=== PATIENT | female | born 2000 | race Caucasian/White ===

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

== ENCOUNTER 2021-06-19 22:22 | Emergency (ER) | payer OTHER, SELFPAY ==
[2021-06-19 22:23] VITALS: BP 159/87; PULSE 110; RESP 16; TEMP 37.2; O2SAT 98; BMI 29.2
[2021-06-19 23:00] LABS: Absolute Lymphocyte Count 3.61 X10^3/uL (0.83-4.51); Basophil# 0.05 X10^3/uL; Basophil% 0.6 % (0-1); Eosinophil# 0.11 X10^3/uL; Eosinophils% 1.3 % (0-5); Hematocrit 37.3 % (37-47); Hemoglobin 12.5 g/dL (12.0-15.0); Lymphocyte # 3.61 X10^3/ul (0.83-4.51); Lymphocyte % 43.2 % (19-41); Mean Corp Hgb Conc 33.5 g/dL (32-36); Mean Corpuscular Hgb 29.5 pg (27.0-32.0); Mean Platelet Vol. 9.2 fl (6.2-12.0); Monocyte# 0.62 X10^3/uL; Monocyte% 7.4 % (0-10); NRBC Flagged by Analyzer 0 % (0-5); Neutrophil # 3.95 X10^3/uL (2.7-7.7); Neutrophil % 47.4 % (47-70); Platelet Count 381 K/mm3 (150-450); RBC Distribution Width CV 12.7 % (11.6-14.6); RBC Distribution Width SD 40.9 fl (35.1-43.9); Red Blood Count 4.24 M/mm3 (4.2-5.4); White Blood Count 8.4 K/mm3 (4.4-11.0)
[2021-06-19 23:10] LABS: Internal QC Validated? YES +Cl - CLEAR BKGD; Pregnancy, Serum, hCG Quali. NEGATIVE Negative
--- NOTE | 2021-06-19 23:11 | EX.ED.DYSGE1 ---
HPI History of Present Illness Chief Complaint: Suicidal Detail of Chief Complaint: Depression and suicidal ideation Informant: patient Narrative Narrative: Patient the emergency department complaint of depression and suicidal ideation. Patient states that she has felt this way for the last several hours but it has been building up for a while. Patient is having thoughts of taking an overdose of all her pills. Patient has never overdosed before. Patient also has history of anxiety and PTSD. Patient will only communicate by typing on her cell phone via text currently. Patient states that she is nonverbal because of her PTSD at this time. Patient does admit at times feeling like she sees things out of the corners of her eyes and feels like there are people behind her that she knows they are not really there. Patient states that she is having issues with school and issues with technology that is driving this depression and suicidal ideation. Patient denies recent illness. Patient has had the Covid vaccine. Patient has never been hospitalized before. Patient does not have a psychiatrist. Prior similar symptoms: Yes [facility] Medical History (Updated 06/20/21 @ 00:[address] Vale Ware, ) Anxiety Depression PTSD (post-traumatic stress disorder) Allergy/AdvReac Type Severity Reaction Status Date / Time No Known Allergies Allergy Verified 06/19/21 22:23 [facility] ED Constitutional Constitutional ED: Reports systems reviewed and no addt'l complaints, except as documented; Denies body ache(s), change in weight or chills Eyes Eyes: Denies acute decrease in peripheral vision, change in vision, double vision or loss of vision ENT ENT ED: Reports none; Denies ear pain, lip swelling, loss taste/smell, neck pain, otalgia or sore throat Cardiovascular Cardiovascular: Reports none; Denies abdominal pain, chest pain with activity, leg edema, lightheadedness, palpitations, rapid heart rate or syncope Respiratory/Chest Respiratory/Chest: Reports none; Denies change in mental status, dry cough, dyspnea, hemoptysis, shortness of breath at rest or shortness of breath with exertion Gastrointestinal Gastrointestinal: Reports none; Denies abdominal pain, change in stool character, diarrhea, hematemesis, hematochezia, melena, rectal bleeding or vomiting Genitourinary Genitourinary ED: Reports none; Denies abdominal discomfort, anuria, dysuria, genital pain or polyuria Musculoskeletal Musculoskeletal: Reports none; Denies arthralgias, back pain, difficulty walking, extremity pain, muscle weakness or myalgias Integumentary Reports none; Denies abscess or rash Neurologic Neurologic: Reports none; Denies abnormal gait, confusion, focal weakness, frequent falls, headache(s), loss of vision, numbness, paresthesias, radicular pain, vertigo or weakness Psychiatric Psychiatric: Reports systems reviewed and no addt'l complaints, except as documented, none, depression and suicidal ideation; Denies behavioral changes, confusion, difficulty concentrating, hallucinations, tactile hallucinations or visual hallucinations Endocrine Endocrinology: Denies none, cold intolerance, excessive sweating, fatigue or heat intolerance Hematologic/Lymphatic Hematologic/Lymphatic: Reports none; Denies anemia, easy bleeding or easy bruising Allergic/Immunologic Allergic/Immunologic ED: Denies as per HPI, none, lip swelling, mouth swelling, throat swelling, tongue swelling or hives EXAM Physical Exam Const Vital Signs: 06/19/21 22:23 06/20/21 00:16 Temperature 99.0 F Temperature Source Oral Pulse Rate 110 H Respiratory Rate 16 16 Blood Pressure 159/87 H Blood Pressure Mean 111 Pulse Ox 98 Oxygen Delivery Method Room Air Positive well nourished and well developed General Appearance ED: well developed and NAD HEENT Reports TM's clear and moist mucous membranes normocephalic and atraumatic; Negative for trauma or tenderness Tympanic Membrane ED: Yes TM's clear Eyes PERRL and EOMs intact bilaterally General Eye ED: Negative for pale conjunctiva or scleral icterus Neck no lymphadenopathy, supple and no JVD General: Negative for tenderness Chest Wall inspection of chest normal and palpation of chest normal Chest: Negative for tenderness Resp normal respiratory effort and clear to auscultation bilaterally Effort and Inspection: Negative for respiratory distress or pain with movement Auscultation: Negative for rhonchi, wheezes or diminished lung sounds Cardio regular rate, regular rhythm, S1 normal heart sound, S2 normal heart sound and no murmurs Peripheral Pulses: pulses 2+ throughout GI normal to inspection, nondistended, normoactive bowel sounds, soft to palpation, non-tender, non-distended and no masses Back/Spine no CVA tenderness and no thoracic nor lumbar tenderness Extremity normal to inspection General Extremety ED: Negative for edema General Extremity: Negative for edema Neuro oriented x3, CN's II-XII intact bilaterally, no sensory deficits noted and gait normal Sensorium / Orientation: awake, alert, oriented to person, oriented to place and oriented to time Motor Exam: strength 5/5 throughout and strength abnormal Psych mental status grossly normal Skin no rashes or lesions noted and no wounds MDM MDM MDM Narrative Medical decision making narrative: Care of patient will be turned over to evening physician awaiting evaluation by crisis. Patient at this time feels unsafe and having thoughts of self-harm. She wishes to overdose on her pills. Patient currently takes Prozac. Lab Data Attestation: I reviewed the patient's lab results. Labs: Laboratory Results - last 24 hr 06/19/21 06/19/21 06/19/21 22:41 22:41 22:41 WBC 8.4 RBC 4.24 Hgb 12.5 Hct 37.3 MCV 88.0 MCH 29.5 MCHC 33.5 RDW Std Deviation 40.9 RDW Coeff of Jatinder 12.7 Plt Count 381 MPV 9.2 Immature Gran % (Auto) 0.100 Neut % (Auto) 47.4 Lymph % (Auto) 43.2 H Gage % (Auto) 7.4 Eos % (Auto) 1.3 Baso % (Auto) 0.6 Absolute Neuts (auto) 4.0 Absolute Lymphs (auto) 3.61 Nucleated RBC % 0 Sodium 137 Potassium 3.7 Chloride 107 Carbon Dioxide 25.0 Anion Gap 5 BUN 9 Creatinine 0.52 L Estim Creat Clear Calc 160.21 Est GFR (MDRD) Af Amer 190 Est GFR (MDRD) Non-Af 157 BUN/Creatinine Ratio 17.2 Glucose 102 Calcium 9.2 Serum , Qual Urine Opiates Screen Urine Methadone Screen Ur Barbiturates Screen Ur Phencyclidine Scrn Ur Amphetamines Screen U Methamphetamin-MDMA U Benzodiazepines Scrn Urine Cocaine Screen U Cannabinoids Screen Ur Drug Screen Comment Ethyl Alcohol < 3.0 06/19/21 06/19/21 22:41 23:44 WBC RBC Hgb Hct MCV MCH MCHC RDW Std Deviation RDW Coeff of Jatinder Plt Count MPV Immature Gran % (Auto) Neut % (Auto) Lymph % (Auto) Gage % (Auto) Eos % (Auto) Baso % (Auto) Absolute Neuts (auto) Absolute Lymphs (auto) Nucleated RBC % Sodium Potassium Chloride Carbon Dioxide Anion Gap BUN Creatinine Estim Creat Clear Calc Est GFR (MDRD) Af Amer Est GFR (MDRD) Non-Af BUN/Creatinine Ratio Glucose Calcium Serum , Qual NEGATIVE Urine Opiates Screen NEGATIVE Urine Methadone Screen NEGATIVE Ur Barbiturates Screen NEGATIVE Ur Phencyclidine Scrn NEGATIVE Ur Amphetamines Screen NEGATIVE U Methamphetamin-MDMA NEGATIVE U Benzodiazepines Scrn NEGATIVE Urine Cocaine Screen NEGATIVE U Cannabinoids Screen NEGATIVE Ur Drug Screen Comment Ethyl Alcohol Discharge Plan Triage Chief Complaint: Suicidal ED Provider: Vale Ware Dx/Rx/DC Orders Clinical Impression: Depression, Suicidal ideation Primary Care Provider: Care Physician,No Primary Referrals: Care Physician,No Primary [Primary Care Provider] -
[2021-06-19 23:15] LABS: Anion Gap 5 (5-15); BUN 9 mg/dL (7-18); BUN/Creat Ratio 17.2 RATIO (10-20); Calcium,Total 9.2 mg/dL (8.5-10.1); Chloride 107 mmol/L (98-107); Creatinine, Serum 0.52 mg/dL (0.55-1.02); EST Glomerular Filtration Rate 157 mL/min (>60); Est Glom Filt Rate - Afr Amer 190 mL/min (>60); Estimated Creatinine Clearance 160.21 ml/min; Glucose 102 mg/dL (74-106); Potassium 3.7 mmol/L (3.5-5.1); Sodium Level 137 mmol/L (136-145)
[2021-06-19 23:19] LABS: Alcohol, Blood (Medical)-Serum < 3.0 mg/dL
[2021-06-20 00:07] LABS: Amphetamine Urine VISTA NEGATIVE (<1000 ng/mL); Barbiturate Urine VISTA NEGATIVE (< 200 ng/mL); Benzodiazepine Urine VISTA NEGATIVE (< 200 ng/mL); Cocaine Urine VISTA NEGATIVE (< 300 ng/mL); Ecstacy Urine VISTA NEGATIVE (< 500 ng/mL); Methadone Urine VISTA NEGATIVE (< 300 ng/mL); PCP Urine VISTA NEGATIVE (< 25 ng/mL); THC Urine VISTA NEGATIVE (< 50 ng/mL); Vista UDS pH Range 6
--- NOTE | 2021-06-20 00:12 | NURSING ---
CALLED CRISIS AT 0012
[2021-06-20 00:16] VITALS: RESP 16
[2021-06-20 01:00] VITALS: RESP 16
[2021-06-20 02:00] VITALS: RESP 14
[2021-06-20 03:00] VITALS: BP 134/69; PULSE 73; RESP 14; O2SAT 97
--- NOTE | 2021-06-20 03:54 | ED.RN ---
THIS RN SPOKE WITH JESSE LOPEZ AT THE [facility]. IT WAS RELAYED THAT SHE WOULD BE DISCHARGED BACK TO CAMPUS WITH A SAFETY PLAN AND APPTS FOR IOP PROGRAM. JESSE VERBALIZES UNDERSTANDING
[2021-06-20 05:09] VITALS: PULSE 76; RESP 16; O2SAT 98
--- NOTE | 2021-06-21 16:01 | CM.ED ---
SURYA Note Referral Source: Michelle at [facility] Referral Reason: Patient transport and scheduled appointment SURYA received call from [facility], Michelle. Michelle said that patient was scheduled to have appointment at 2pm today [facility]. Michelle said that [facility] went to the [facility] but has no ride home as she was dropped off. SURYA called Diamante at [facility]. She indicated that patient needs to be rescheduled for intake. SURYA rescheduled intake for 1:00pm on Friday06/22/21. 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 SURYA called Michelle at [facility] and advised that patient's appointment has been rescheduled for 06/22 at 1:00pm and that hospital van will pick patient up at [facility] and take her back to [facility]. Michelle agreed to provide this information to patient. SURYA advised Michelle that if patient needs ride tomorrow to speak to transport. No further SW needs at this time. Plan: Reschedule patient's intake at [facility] for 06/22 at 1PM Antoinette SPENCE
== END 2021-06-20 05:09 | disposition home or self-care (01) ==
PROVIDERS: Emergency Provider Emergency Medicine
DX: F32.9 Major depressive disorder, single episode, unspecified (principal); R45.851 Suicidal ideations; Z79.899 Other long term (current) drug therapy
CPT/HCPCS: 36415; 80048; 80307; 82077; 84703; 85025; 87426; 99283

== ENCOUNTER 2021-07-17 09:00 | Outpatient (RCR) | payer OTHER, SELFPAY ==
--- NOTE | 2021-07-17 09:05 | BH.SGPN.GN ---
Behaviors/Verbalizations/Mental Status: [] Eye contact is good. Motor activity is appropriate. Appearance is neat. Speech is Appropriate. Mood is anxious. Affect is congruent. Thoughts are linear and logical. No evidence of psychosis. Reviewed daily check in sheet and no reports of suicidal ideations or intent. Client Response/Progress/Benefit: [] Pt participated when prompted. Attentive. This was patient's first group in IOP and she introduced herself to the group. States that she has depression, anxiety and possibly PTSD. Over the past month she has been isolating and more depression. She is hoping to learn better skills to control my emotions. Group was supportive and offered advice and feedback for her first day and week. No progress noted as this was her first day in IOP. Will continue in IOP to maintain safety, increase healthy coping, and prevent decompensation. Narrative Note: []
--- NOTE | 2021-07-17 10:10 | BH.SGPN.GN ---
Behaviors/Verbalizations/Mental Status: []Client alert and oriented, neatly dressed and groomed. Eye contact good. Motor activity appropriate. Speech within normal limits. Affect congruent, mood euthymic and anxious. Thoughts linear, logical, no signs of hallucinations or delusions. Client Response/Progress/Benefit: []Pt providing feedback during discussion and attentive during psychoeducation. Took notes as peers identified obstacles or barriers that hinder our ability to communicate our emotions effectively, especially in stressful situations. Group identified the following obstacles; not knowing how to express self, distorted thought patterns, difficulty distinguishing emotions, and lashing out. Pt provided insight on how emotion and mood can impact effective communication. Pt engaged during activity and reported that difficulty distinguishing their emotions and distorted thoughts are often a barrier to being able to manage their emotions and communicating in stressful situations. Benefited from increased awareness on how our emotions impact our communication. First day of IOP tx. Will continue IOP tx to prevent decompensation, gain healthy coping skills, and maintain safety. Narrative Note: []
--- NOTE | 2021-07-17 11:14 | BH.SGPN.GN ---
Behaviors/Verbalizations/Mental Status: []Client alert and oriented, casually dressed and groomed. Eye contact good. Motor activity appropriate. Speech within normal limits. Affect congruent, mood dysthymic. Thoughts linear, logical, no signs of hallucinations or delusions. Client Response/Progress/Benefit: []Client first day in IOP tx. Did well to remain engaged in session AEB client listening attentively to peers, taking notes, and providing input throughout. Worked with group to process the activity completed in previous session and identify skills used to better manage emotions experienced throughout. Reflected that focusing on what?s in their control could aid in improving emotion regulation in the moment. Attentive during psychoeducation on 4 zones of regulation. Client able to identify feelings and behaviors for each zone. Client identified that ?green zone? means feeling more neutral, calm, and focused, and strong. Shared when in the ?green zone? client often goes to the studio, reflects with others, and makes spontaneous plans with others. Able to identify specific coping skills to support themself in each zone which included: make art, self-care activities, progressive muscle relaxation, as well as develop and communicate with supports a crisis management plan. Benefited from increased education on zones of regulation or stages of alertness for emotions and healthy coping skills to use for each zone. Will continue IOP tx to improve mood stability and prevent decompensation, increase insight and understanding of mental health sx, as well as improve emotion regulation skills. Narrative Note: []
--- NOTE | 2021-07-17 11:27 | BH.COMM ---
Communication Note - Communication with Client Communication Note: met with pt to complete initial paperwork and pt's pronouns are they/them. No significant changes since pre-admission screening. Completed [place] [facility]icide Screening. Pt presents as low-moderate risk. Pt denies any active suicidal ideations, plan, or intent as of 07/17/21. Pt has history of self-injurious behaviors but denies any in the past 11 months. Pt also reports history of one previous suicide attempt in middle school. Pt admits to having suicidal ideations with thoughts of overdosing on their medications which resulted in an ER visit on 06/19/21. Pt reports their suicidal ideations are passive now and they feel able to maintain safety. Future oriented and protective factors noted. Does not present as imminent risk due to no active SI, plan, or intent.
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
[2021-07-18 10:27] VITALS: BP 140/77; PULSE 85
--- NOTE | 2021-07-18 11:10 | BH.SGPN.GN ---
Behaviors/Verbalizations/Mental Status: []Client alert and oriented, neatly dressed and groomed. Eye contact good. Motor activity appropriate. Speech within normal limits. Affect congruent, mood dysthymic. Thoughts linear, logical, no signs of hallucinations or delusions. Client Response/Progress/Benefit: []Pt was engaged throughout AEB participating in discussion and taking notes. Pt did well during the short activity to their frustration during and did well to use calming skills and communication. Contributed as group brainstormed healthy coping skills for better managing anger which included: deep breathing, counting, exercise, DDD, and looking at the consequences of responding in anger. Pt also gained awareness of internal costs of unmanaged anger. Pt appeared to benefit from identifying different techniques to manage anger as well as gaining awareness of the costs of anger. Pt reported when their anger is unmanaged, pt becomes sarcastic and isolates. Pt selected progressive muscle relaxation to better manage anger. Will continue IOP tx to prevent decompensation, gain healthy coping skills, and improve daily functioning. Narrative Note: []
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
--- NOTE | 2021-07-18 12:06 | BH.DR.ITP ---
Initial Treatment Plan Patient Information Visit Information: ADMISSION DATE: EXPECTED LOS: 4-6 weeks Problems/Symptoms Problem #1:: Anxiety Symptom:: Rumination, worry, hypervigilance, feeling of impending doom, nightmares, reexperiencing Problem #2:: Depression Symptom:: Sadness, biological disruption of appetite, guilt, worthlessness, history of suicidal ideation, low energy, erratic concentration
--- NOTE | 2021-07-19 09:05 | BH.SGPN.GN ---
Behaviors/Verbalizations/Mental Status: [] Eye contact is good. Motor activity is appropriate. Appearance is neat. Speech is Appropriate. Mood is anxious. Affect is congruent. Thoughts are linear and logical. No evidence of psychosis. Reviewed daily check in sheet and no reports of suicidal ideations or intent. Client Response/Progress/Benefit: [] Pt was an active participant in group discussion. Attentive. Daily symptom tracker notes 10/10 for anxiety and irritability. Shared with the group that she may be over-extending herself with work and school. Notes that she has been working daily. Group had discussion on boundary setting with support and work is important for mental health. Pt has insight into the impact. Overall a very brief check in for patient however she was engaged in other group discussions and provided appropriate feedback to peers. Progress noted per pt report. Will continue in IOP to maintain safety, increase healthy coping, and prevent decompensation. Narrative Note: []
--- NOTE | 2021-07-19 10:10 | BH.SGPN.GN ---
Behaviors/Verbalizations/Mental Status: [] Eye contact is good. Motor activity is appropriate. Appearance is neat. Speech is Appropriate. Mood is anxious. Affect is congruent. Thoughts are linear and logical. No evidence of psychosis. Client Response/Progress/Benefit: [] Pt was an active participant in group discussion and activity. Attentive during psychoeducation on anger. Participated in interactive discussion on reasons for anger and some positive benefits which include; standing up for something, sports, competition, causes us to set boundaries, and motivates us into action. Participated in discussion on the emotions that underlay anger or feed anger which pt identified were feeling unsafe and lack of control. Patient also shared how anger manifests which is isolation, sarcasm, and venting. Benefited from increased understanding of anger and how it impacts individuals. Will continue in IOP to maintain safety, increase healthy coping skills, and improve functioning. Narrative Note: []
--- NOTE | 2021-07-19 10:16 | BH.SGPN.GN ---
Behaviors/Verbalizations/Mental Status: []Client alert and oriented, neatly dressed and groomed. Eye contact good. Motor activity appropriate. Speech within normal limits. Affect congruent, mood euthymic. Thoughts linear, logical, no signs of hallucinations or delusions. Client Response/Progress/Benefit: []Pt was an active participant AEB pt participating in activity, taking notes, and contributing to discussion. Pt worked with group to identify benefits of effective problem solving. Listened during psychoeducation about ABCDE problem solving method. Worked with group to identify barriers to effective problem solving which included: irrational thinking, impatience, indecisiveness, not having skills, feeling overwhelmed, and difficult emotions. Pt reported to solve problems ?you need to take a step back.? Pt seemed to benefit from increased awareness of strategies to help solve a problem. Pt will continue IOP tx to prevent decompensation of symptoms, improve daily functioning, and gain healthy coping skills. Narrative Note: []
--- NOTE | 2021-07-19 11:13 | BH.SGPN.GN ---
Behaviors/Verbalizations/Mental Status: []Eye contact is good. Motor activity is appropriate. Appearance is casual. Speech is Appropriate. Mood is euthymic, anxious. Affect is congruent. Thoughts are linear and logical. No evidence of psychosis. Client Response/Progress/Benefit: []Pt responded well to session as evidenced by contributing during challenge activity, listening to peers, and providing input throughout. Processed how strategies used for problem solving in activity can be applied to daily life. Completed problem solving worksheet and identified the problem she wants to work on as ?feeling safer in safe places?. Pt identified skills she can utilize to work on this problem include: increase awareness of current safe and unsafe places she encounters regularly, reflect on what safety feels like, reflect on behaviors she can engage in to increase sense of safety in safe places, identify personal triggers, and practice stabilization skills in identified safe places. Discussed that working to solve this problem will aid in increasing self-confidence and reducing anxiety levels. Pt seemed to benefit from identifying strategies to problem solve through a problem currently impacting mental health. Recommended continued tx to further improve consistent healthy coping and self-care, reduce distorted thinking patterns which cause anxiety, and improve mood stability. Narrative Note: []
--- NOTE | 2021-07-24 09:05 | BH.SGPN.GN ---
Behaviors/Verbalizations/Mental Status: [] Eye contact is good. Motor activity is appropriate. Appearance is casual. Speech is Appropriate. Mood is depressed. Affect is flat. Thoughts are linear and logical. No evidence of psychosis. Reviewed daily check in sheet and no reports of suicidal ideations or intent. Client Response/Progress/Benefit: [] Pt participated at times during the group discussion. Attentive. Emotion is tired. Mental health win was improved sleep over the past 2 days. Reports that she typically sleeps 3 hours however has been sleeping 5 hours. Primarly obstacle is nightmares. She will stay awake till 2-3 am till she is exhausted and passes out. She doesn't like to sleep b/c of the nightmares. Other mental health win is that people at back on campus after fall break. Less isolation which is beneficial. Progress noted per pt report. Benefited from group support, encouragement, and feedback. Will continue in IOP to maintains safety, prevent decompensation, and increase healthy coping skills. Narrative Note: []
--- NOTE | 2021-07-24 10:15 | BH.SGPN.GN ---
Behaviors/Verbalizations/Mental Status: []Client alert and oriented, casually dressed and groomed. Eye contact good. Motor activity appropriate. Speech within normal limits. Affect congruent, mood anxious. Thoughts linear, logical, no signs of hallucinations or delusions. Client Response/Progress/Benefit: []Client was an engaged participant AEB listening attentively to others, taking notes, and staying engaged with group activity. Connected with the topic of pitfalls and helped the group discuss barriers that keep them from choosing a healthier path to mental wellness such as pitfalls. Client stated quick fixes tend to be a temporary relief. Group worked together to identify examples of personal pitfalls which included: negative thoughts, avoidance of things need to do, seek external validation, limited self-reflection, and maintaining toxic relationships. Client benefited from group with increased understanding of impact personal pitfalls can have on mental health. Client will continue IOP to increase healthy coping skills, improve daily functioning and prevent decompensation. Narrative Note: []
--- NOTE | 2021-07-24 11:15 | BH.SGPN.GN ---
Behaviors/Verbalizations/Mental Status: []Client alert and oriented, neatly dressed and groomed. Eye contact good. Motor activity appropriate. Speech within normal limits. Affect congruent, mood euthymic. Thoughts linear, logical, no signs of hallucinations or delusions Client Response/Progress/Benefit: []Client receptive of session, engaged throughout AEB client actively listening and contributing to discussion, as well as taking notes. Client completed worksheet identifying personal pitfalls impacting mental health progress. Client identified the following pitfalls: trying to ?do it alone,? unrealistic expectations of self, and inappropriate guilt. Group learned different coping skills to help manage pitfalls. Client selected trying to ?do it alone? as the pitfall client wants to overcome. Client plans to work on this by recognizing the support client does have and recognizing when they use healthy support. Benefited from identifying personal pitfalls and strategies to overcome these pitfalls. Will continue IOP tx to reduce negative thinking, improve daily functioning, and increase management of PTSD symptoms. Narrative Note: []
--- NOTE | 2021-07-24 13:36 | BH.MDN ---
Multi-Disciplinary Note - Note 30-min Individual Time Started:: 12:10 Date: 07/24/21 Purpose of session/treatment goals addressed:: To process current stressors, review boundary setting strategies, and validate emotions. Symptoms/Behavior:: Pt identifies as non-binary and has they/them pronouns. Eye Contact:: Good Motor Activity:: Appropriate Appearance:: Neat Speech:: Appropriate Mood:: Euthymic, Anxious Affect:: Congruent Thoughts:: Linear, Logical, No evidence of hallucinations/delusions noted Staff Interventions:: rapport building, strengths perspective, goal setting, other - discussed boundary strategies and self-care Client Response:: Pt responded well to session, open to meeting with therapist. Pt reports they are feeling much better this week. Pt shared last week they were overwhelmed by work and not getting much sleep. Pt also submitted the first chapter of their independent study, and although they were late in submitting it, they felt confident about the work. Pt reports today they wanted to address anxiety about being with their mother and grandfather tomorrow. Pt shared their grandfather is not a good person and that pt and their grandfather do not have the same beliefs. Pt stated they have not come out to their grandfather about their sexual orientation and gender identity. Pt reports they do not want to discuss this or their mental health with their family tomorrow. Discussed what boundaries pt wants to enforce and how pt can do this. Pt reports they want to communicate their boundaries ahead of time with their mother and to have a plan in the moment if boundaries get disrespected. Also discussed pt's supports and self-care plan after the lunch with their mother and grandfather. Risks/Concerns:: Pt denies any suicidal ideations, plan, or intent as of 07/24/21. Progress Toward Goals/Plan:: Pt's first week of IOP tx. Pt reports enjoying coming to IOP and is consistent with attendance. Pt states their mood has been better and they are feeling less stressed about school this week. Pt continues to endorse issues with sleep, nightmares, anxiety about school, and negative thinking patterns. Pt will continue IOP tx to promote mood stability, increase emotional regulation skills, and improve overall functioning. Time Stopped:: 12:35
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
--- NOTE | 2021-07-24 14:11 | BH.MTP ---
Master Treatment Plan - Patient Information Program Physician:: Dr. Antoinette Car Primary Therapist:: Diamante VELAZQUEZ - Psychiatric Diagnoses Psychiatric Diagnoses:: Generalized anxiety disorder; Major depressive disorder, recurrent, moderate; PTSD Diagnosis Code(s):: F 33.1 - Estimated LOS Estimated LOS (in weeks):: 6 Problem/Goal #1 - Problem/Goal #1 Stated Goal:: Client will increase emotional regulation skills and reduce intensity and duration of PTSD symptoms. Description of Barriers: Pt reports a lot of stress due to balancing work and school. Pt recently came out as non-binary and identifies as queer. Pt reports this can be hard because it feels like I have to come out every day. Pt has anxiety about the future. Functional Impact: Pt is a 21-year-old non-binary person with a history of depression and PTSD. Pt was referred to [facility] by [facility] ER after a mental health assessment on 06/19/21. At that time pt presented to the ER with suicidal ideations with thoughts of overdosing. Pt reports at the time pt was overwhelmed and that all their stress was building up. Pt endorsed symptoms of hypervigilance and reports nightmares and avoidance behaviors. Denies any current suicidal ideations. However, pt continues to endorse a depressed mood with lack of energy, poor sleep, lack of motivation, inappropriate guilt, isolation, and lack of motivation. Pt has history of self-injurious behaviors, but denies any current self-harm. Pt's symptoms were impacting their overall functioning. Goal Relevant Strengths/Supports: Pt has good insight to symptoms and has knowledge of coping skills. Pt has support at college and is motivated to get better. Pt enjoys dancing and is not longer suicidal. - Objectives Objective #1 Stated Objective: Pt will be able to identify triggers and symptoms related to trauma and learn 2-3 coping skills to manage symptoms. Interventions: Therapist will provide education on trauma and help pt explore triggers, personal symptoms, and warning signs of stress and trauma. Therapist will teach pt coping skills to improve emotional regulation, mindfulness, and distress tolerance. Discharge Criteria: Pt will have met this objective when can identify triggers and warning signs to trauma and report using at least 2 coping skills to manage symptoms. Target Date: 08/28/21 Review Date: 08/14/21 Status: open Objective #2 Stated Objective: Pt will identify 2-3 cognitive distortions that lead to rumination and learn 2-3 ways to manage these thoughts to better manage anxiety. Interventions: Therapist will provide education on the most common cognitive distortions and teach pt the connection between thoughts, emotions, and feelings. Therapist will assist pt in identifying, challenging, and replacing dysfunctional thoughts with positive, more realistic thoughts. Therapist will use CBT and DBT techniques to help pt gain awareness of thinking errors and learn how to more effectively handle negative thoughts. Therapist will also use self-compassion to help pt set more realistic expectations for herself. Discharge Criteria: Pt will have accomplished this goal when can identify at least 2 cognitive distortions and at least 2 coping skills to manage negative thoughts. Target Date: 08/28/21 Review Date: 08/14/21 Status: open Problem/Goal #2 - Problem/Goal #2 Stated Goal:: Client will reduce depressive symptoms, lack of motivation, and inappropriate guilt due to major depressive disorder. Description of Barriers: Pt reports a lot of stress due to balancing work and school. Pt recently came out as non-binary and identifies as queer. Pt reports this can be hard because it feels like I have to come out every day. Pt has anxiety about the future. Functional Impact: Pt is a 21-year-old non-binary person with a history of depression and PTSD. Pt was referred to [facility] by [facility] ER after a mental health assessment on 06/19/21. At that time pt presented to the ER with suicidal ideations with thoughts of overdosing. Pt reports at the time pt was overwhelmed and that all their stress was building up. Pt endorsed symptoms of hypervigilance and reports nightmares and avoidance behaviors. Denies any current suicidal ideations. However, pt continues to endorse a depressed mood with lack of energy, poor sleep, lack of motivation, inappropriate guilt, isolation, and lack of motivation. Pt has history of self-injurious behaviors, but denies any current self-harm. Pt's symptoms were impacting their overall functioning. Goal Relevant Strengths/Supports: Pt has good insight to symptoms and has knowledge of coping skills. Pt has support at college and is motivated to get better. Pt enjoys dancing and is not longer suicidal. - Objectives Objective #1 Stated Objective: Client will learn and utilize 2-3 healthy coping strategies to better manage depressive symptoms as shown by reduced DSM-5 scores for depression. Interventions: Through group and individual sessions, therapist will help client identify triggers and warning signs of depression and emotional dysregulation including emotional, physical, and behavioral changes. Therapist will teach pt various coping skills to manage symptoms and give pt tangible resources to use to regulate emotions. Therapist will use cognitive restructuring techniques and help pt gain awareness of negative thoughts that reinforce guilt and depression. Therapist will provide psychoeducation on maintenance cycles and help pt learn ways to break unhealthy maintenance cycles. Therapist will help pt incorporate behavioral activation and assist client in setting SMART goals. Discharge Criteria: Pt will have met this goal when they can report learning and using at least 2 coping skills to manage depressive symptoms. Additionally, pt will have met this goal when depressive symptoms have reduced on the DSM-5 scale. Target Date: 08/28/21 Review Date: 08/14/21 Status: open Objective #2 Stated Objective: Pt will identify at least 2-3 negative self-talk messages used to reinforce guilt and negative core beliefs and replace thoughts with positive, realistic messages. Interventions: Therapist will help pt identify distorted, negative beliefs about self and replace with more realistic, affirmative messages. Therapist will use CBT to help pt increase insight to the connection between thoughts, emotions, and behaviors. Therapist will encourage pt to practice thought challenging. Discharge Criteria: Pt will have achieved this goal when can verbalize at least 2 negative self-talk messages and effectively replace those thoughts with affirmative messages. Target Date: 08/28/21 Review Date: 08/14/21 Status: open
--- NOTE | 2021-07-25 09:05 | BH.SGPN.GN ---
Behaviors/Verbalizations/Mental Status: []Eye contact is good. Motor activity is appropriate. Appearance is casual. Speech is appropriate. Mood is anxious. Affect is congruent. Thoughts are linear and logical. No evidence of psychosis. Reviewed daily symptom tracker sheet with no reports of suicidal ideations, plan, or intent. Client Response/Progress/Benefit: []Client was engaged and attentive throughout group session, and provided insight to others. Client identified their emotion of the day as ?anxious?, as their mother and grandfather are coming to have lunch today. Client stated that they did not want to talk about their mental health with their family, and texted their mother to set the boundary prior to the meeting. Appeared to benefit from supportive discussion regarding setting boundaries with family. Client identified a win of getting eight hours of sleep, something that they have been struggling to do. Client indicates per daily symptom tracker that their mood and ability to function has been generally better. Will continue IOP treatment to gain healthy coping skills to improve functioning. Narrative Note: []
--- NOTE | 2021-07-25 10:10 | BH.SGPN.GN ---
Behaviors/Verbalizations/Mental Status: []Client alert and oriented, casually dressed and groomed. Eye contact good. Motor activity appropriate. Speech within normal limits. Affect congruent, mood euthymic and anxious. Thoughts linear, logical, no signs of hallucinations or delusions. Client Response/Progress/Benefit: []Client engaged during session AEB client contributing thoughts throughout discussion and completing worksheet. Connected with discussion on crisis and how coping with external crises by using unhealthy coping skills could result in a personal crisis. Able to give examples of unhealthy coping skills people use to manage crisis. Group reflected on the importance of having awareness of personal warning signs to prevent reaching crisis point. Group identified potential warning signs for crisis and client completed the personal warning signs worksheet. Client identified personal crisis warning signs to include: forced personal hygiene, minimizing, and isolation/avoidance. Client benefited by increasing awareness of what leads to crisis and personal warning signs. Client will continue IOP tx to improve emotional regulation skills, improve functioning, and decrease negative thought patterns. Narrative Note: []
--- NOTE | 2021-07-25 11:10 | BH.SGPN.GN ---
Behaviors/Verbalizations/Mental Status: []Client alert and oriented, casually dressed and groomed. Eye contact fair. Motor activity appropriate. Speech within normal limits. Affect congruent. Mood euthymic. Thoughts linear, logical, no signs of hallucinations or delusions. Client Response/Progress/Benefit: []Client responded well to session as evidenced by client listening attentively to others and providing strategies during discussion. Client identified her warning signs for crisis and gained further awareness of earliest warning signs. Client created a crisis action plan to help client better manage warning signs for crisis. Client?s action plan for isolation included: using opposite action to contact support person, invite friend over, engage in hobby, change environment, and visual aid with benefits of getting outside house. Client appeared to benefit from creating a crisis action plan and increasing self-awareness. Client to continue IOP tx to increase healthy coping, challenge distorted thoughts, and prevent decompensation. Narrative Note: []
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
--- NOTE | 2021-07-26 10:06 | BH.SGPN.GN ---
Behaviors/Verbalizations/Mental Status: []Eye contact is good. Motor activity is appropriate. Appearance is casual. Speech is Appropriate. Mood is euthymic. Affect is full. Thoughts are linear and logical. No evidence of psychosis Client Response/Progress/Benefit: []Pt was an engaged participant in group discussion, providing input and was attentive during psychoeducation. Participated in short activity about automatic thoughts and shared that mood and past experiences can impact automatic thoughts. Group was primarily educational; therapist introduced and gave examples of the most common cognitive distortions. Benefited from education and increased awareness of cognitive distortions and the role that they play our behaviors and emotions. Pt reported connecting with distortions such as emotional reasoning, personalizing, and predicting the future. Pt reported when they have predicted the future this has negatively impacted relationships. Will continue IOP tx to increase use of healthy coping skills, reduce negative thought patterns, and improve mood stability. Narrative Note: []
--- NOTE | 2021-07-26 11:16 | BH.SGPN.GN ---
Behaviors/Verbalizations/Mental Status: []Eye contact is good. Motor activity is appropriate. Appearance is casual. Speech is Appropriate. Mood is euthymic, anxious. Affect is congruent. Thoughts are linear and logical. No evidence of psychosis. Client Response/Progress/Benefit: []Pt was an active participant, taking notes and providing input throughout group discussion and activity. Attentive during psychoeducation on cognitive distortions not discussed in previous group and shared several examples of distortions they struggle with. Pt indicated connecting with distortions of catastrophizing/minimizing, disqualifying the positives, and overgeneralization. Shared personal example of personalization. Pt was an actively engaged participant in Cognitive Distortions Jeopardy, providing input and suggestions to small group. Utilized notes from psychoeducation on cognitive distortions to assist peers in correctly answering questions. Expressed benefitting from challenging herself to better identify and reframe the distortions in the moment. Experiential activity was beneficial as it provided a way for patient to review notes and handouts during psychoeducation to answer questions for the game. Will continue in [facility] tx to further improve application healthy coping skills for better management of symptoms, reduce anxiety and use of avoidance, and further improve ability to manage stressors impacting ability to function at baseline. Narrative Note: []
--- NOTE | 2021-07-31 09:05 | BH.SGPN.GN ---
Behaviors/Verbalizations/Mental Status: [] Eye contact is good. Motor activity is appropriate. Appearance is casual. Speech is Appropriate. Mood is depressed. Affect is flat. Thoughts are linear and logical. No evidence of psychosis. Reviewed daily check in sheet and pt reports 1/5 for suicidal thoughts and 0/5 for intent. Client Response/Progress/Benefit: [] Pt participated at times during group discussion. Attentive. Daily symptom tracker notes 2/5 for anger and 2/5 for anxiety. [employer] win was coming to IOP today despite not wanting too. Reports I feel myself shutting down Shared a stressful day yesterday which centered around losing her student ID card which is essential for getting into her room and for food. Other aspects of the day were overwhelming as well. Awareness that she has urge to avoid and isolation which are warning signs of depression and possible SI. Aware of this and forced herself to come to IOP today in hopes to manage and prevent further decompensation. Group was supportive and provided feedback and encouragement which was beneficial. Regression noted. Will continue in IOP to maintain safety, increase healthy coping, and improve functioning. Narrative Note: []
--- NOTE | 2021-07-31 10:20 | BH.SGPN.GN ---
Behaviors/Verbalizations/Mental Status: []Client alert and oriented, neatly dressed and groomed. Eye contact good. Motor activity appropriate. Speech within normal limits. Affect constricted, mood dysthymic. Thoughts linear, logical, no signs of hallucinations or delusions. Client Response/Progress/Benefit: []Pt was an active participant in group discussions and activity. Attentive during psychoeducation. Along with peers provided insight into topics discussed which included; What is social support? Why is social support important? What are the benefits of using our supports? How does a lack of strong social supports impact our mental health and symptom management? Pt reported having a healthy support system can increase self-confidence and pt shared how dancing is a big part of their support system. Participated in activity and was able to connect the activity to the topic of creating and maintaining a balance of social supports. Benefited from increased awareness of the benefits to a balanced social support and barriers to utilizing social support. Progress noted in pt?s self-report of utilizing opposite action this morning to combat urges to isolate. Will continue in IOP to prevent decompensation, increase healthy coping skills to manage anxiety, and reduce negative thought patterns. Narrative Note: []
--- NOTE | 2021-07-31 13:48 | BH.MDN ---
Multi-Disciplinary Note - Note 45-min Individual Time Started:: 12:00 Date: 07/31/21 Purpose of session/treatment goals addressed:: To work on goal #1 of client's treatment plan. Eye Contact:: Good Motor Activity:: Appropriate Appearance:: Neat Speech:: Appropriate Mood:: Anxious, Dysthymic Affect:: Congruent Thoughts:: Linear, Logical, No evidence of hallucinations/delusions noted Staff Interventions:: psychoeducation on: - maintenance cycles; PTSD, strengths perspective, other - created a coping plan with triggers, warning signs, and coping skills/supports. Client Response:: Client responded well to session, open to meeting with therapist. Client reports they had a stressful /Friday. Client shared Mondays are the most stressful day of the week for them, usual. Client reported going into the weekend they felt stressed which was triggered by getting lunch with their mother and grandfather. Client shared this interaction went well, but they did not have time to decompress. Client reports when they get overwhelmed it can quickly turn into a vicious cycle which results in isolation and procrastination. Receptive to discussing maintenance cycles and how thoughts, behaviors, and emotions reinforce anxiety and depression. Client completed their own maintenance cycle and began working on their coping plan worksheet. Client able to identify numerous triggers, warning signs, and coping skills for PTSD. Client also identified what does not help manage their PTSD such as spending time with people who do not respect emotional boundaries, not challenging distortions, and freezing instead of talking to supports. Therapist encouraged client to use the worksheet format to create coping plans for depression and gender dysphoria. Client also reflected on their application of coping skills over the weekend which included opposite action this morning and reframing distorted thought patterns. Risks/Concerns:: Client denies any suicidal ideations, plan, or intent as of 07/31/21. Progress Toward Goals/Plan:: Client continues to respond well to treatment AEB client's consistent attendance and report of applying healthy coping skills. Client reports over the weekend and yesterday they were experiencing increased stress and PTSD symptoms. Client was feeling the urge to isolate, but used opposite action today. Client continues to endorse flashbacks, ruminations, and difficulty concentrating. Will continue IOP tx to improve emotional regulation skills, reduce avoidance, and increase positive self-talk. Time Stopped:: 12:45
--- NOTE | 2021-08-01 10:10 | BH.SGPN.GN ---
Behaviors/Verbalizations/Mental Status: [] Eye contact is good. Motor activity is appropriate. Appearance is casual. Speech is Appropriate. Mood is depressed. Affect is flat. Thoughts are linear and logical. No evidence of psychosis. Client Response/Progress/Benefit: [] Pt was an active participant in group discussion and activity. Attentive during psychoeducation. Pt participated in interactive group discussion in which group defined fixed mindset and provided insight on how a fixed mindset could impact mental health and result in; being closed to new possibilities, focusing only on how things are unfair, could lead to helplessness, could lead to feelings of not being in control, could cause one to feel like a failure, and could cause one to ignore any success. Interacted and worked well with peers in small group. Fixed mindset thoughts that were overheard during activity included; This won't work, this didn't work before, I don't think this matters, Its hard. I'm nervous, this sucks, this is impossible, I'm not good at this, we will fail. Benefited from increased awareness on the role of fixed mindset on mental health. Will continue in IOP to maintain safety, increase healthy coping, and prevent decompensation. Narrative Note: []
--- NOTE | 2021-08-01 11:10 | BH.SGPN.GN ---
Behaviors/Verbalizations/Mental Status: []Client alert and oriented, neatly dressed and groomed. Eye contact good. Motor activity appropriate. Speech within normal limits. Affect congruent, mood stressed. Thoughts linear, logical, no signs of hallucinations or delusions. Client Response/Progress/Benefit: []Client engaged during activity and discussion AEB remaining attentive, providing increased input, and taking notes throughout. Client worked in small group to apply skills learned to reframe own personal fixed thoughts. Appeared to benefit from suggestions provided by peers as client indicated struggling to reframe thoughts identified. Reframed personal fixed thought of ?I don?t deserve to feel this way? with growth mindset thought of ?I can take risks and be more vulnerable with my supports to feel better?. Client also picked a strategy from the list of suggestions to develop a growth mindset. Benefitted from discussing benefits of growth mindset and brainstorming strategies for prompting growth-mindset. Progress noted as client reports applying opposite action outside of IOP. continue IOP tx combat distorted thought patterns, reduce PTSD symptoms, and improve mood stability. Narrative Note: []
--- NOTE | 2021-08-01 12:01 | PCM.BH.PN_ITS ---
Progress Note Progress Note: History of Present Illness/Interim History: [] The patient is a 21-year-old female who is seen in follow-up at the [facility] behavioral health IOP program where she is being treated for depression and anxiety. The patient was last seen about 2 weeks ago. At that time a thyroid and vitamin D level were ordered but the patient states that she has been busy and has been unable to get her blood drawn yet. She plans to go get her blood drawn soon. She feels she is learning valuable skills in the IOP program and feels that it has been very worthwhile for her to do. She feels that overall she is doing fine. She describes her mood as stressed out but not depressed. She is still enjoying dancing and this relieves stress for her. She states that she is now less stressed out about her senior project now. She states that she saw her mother last week and this is often stressful her for her but she says due to her work in the IOP program she was able to set some boundaries with her mother around her mental health issues. She still harbors resentment of her father and states that now he is in [facility] where he owns land with his third ex-. The patient resents this because he did not help her financially with college. She denies passive thoughts of , suicidal ideation, plan for suicide, homicidal ideation, hallucinations, delusions. She denies any self-harm. Current Psychiatric Medications: [] Lexapro 20 mg p.o. daily Mental Status Examination: [] The patient is a female who is seen wearing a mask and appears normal for stated age and is casually dressed and groomed with good hygiene. She has no psychomotor agitation or retardation. Eye contact is good and speech is normal rate and rhythm and fluent with no pressure. Mood is euthymic. Affect is full and normal. Thought process is goal-directed and organized. Thought content: There is no evidence of passive thoughts of , suicidal ideation, plan for suicide, thoughts of self-harm, homicidal ideation, hallucinations or delusions. Judgment is intact. Insight is good. Impulsivity is moderate to low. Diagnoses: [] 1. Generalized anxiety disorder 2. Major depressive disorder, recurrent, moderate (resolving) 3. PTSD 4. Osteoarthritis 5. Primary support and school stress Plan: [] The patient will continue the IOP program at [facility] as the structure, support, education and group therapy will hopefully prevent worsening of the patient's symptoms. She felt safe during the interview and if it anytime she does not feel safe she will let us know or go to the emergency room. The risks, side effects and possible complications and options of the medication were again discussed with the patient and she understands accepts these. The patient agrees to obtain her blood work soon. She will continue to follow-up with her outpatient providers and I will continue to follow the patient while she is in the IOP program. A refill was sent in for her Lexapro 20 mg p.o. daily.
--- NOTE | 2021-08-02 09:08 | BH.SGPN.GN ---
Behaviors/Verbalizations/Mental Status: []Client alert and oriented, casually dressed and groomed. Eye contact good. Motor activity appropriate. Speech within normal limits. Affect constricted, mood dysthymic. Thoughts linear, logical, no signs of hallucinations or delusions. Reviewed client?s symptom tracker, denies any suicidal ideation, plan, or intent as of 08/02/21. Future oriented Client Response/Progress/Benefit: []Client responded well to session, attentive and providing input throughout. Client reports feeling numb this morning; however, did well to identify several things they can do to improve ability to be present. Went on to discuss tension in the relationship with their father and a recent trip he went on without telling client. Receptive of group support and encouragement. Client did well to identify several supports they are able to go to and process emotions related to this relationship. Identified plans to go to the library this afternoon and study as well as identified some small self-care goals they can work towards this afternoon. Client progress continues to be inconsistent as client struggles with mood stability and emotional reasoning related to external stressors. Continued IOP tx recommended to improve consistency of emotion regulation and self-care skills, continue to promote thought challenging, and prevent decompensation. Narrative Note: []
--- NOTE | 2021-08-02 10:10 | BH.SGPN.GN ---
Behaviors/Verbalizations/Mental Status: [] Eye contact is good. Motor activity is appropriate. Appearance is neat. Speech is Appropriate. Mood is euthymic. Affect is full. Thoughts are linear and logical. No evidence of psychosis. Client Response/Progress/Benefit: [] Pt was an active participant in group activity. Attentive during psychoeducation. Participated in interactive discussion on celebrities who overcame failures to decrease stigma associated with failure. Group then worked together to identify the impact of FOF which can lead to; feeling as if they are not enough, can cause apprehension about trying new things, can lead to staying in toxic and unhealthy situations, self-sabotage, keep one stuck, and prolonged suffering. Pt also participated in and provided insight on what causes or leads to FOF which included; expectations, family dynamics, the environment, status, and our view of ourself. Benefited from increased awareness of the role of FOF on mental health and decision-making. Will continue in IOP to maintain safety, increase healthy coping, and prevent decompensation. Narrative Note: []
--- NOTE | 2021-08-02 11:15 | BH.SGPN.GN ---
Behaviors/Verbalizations/Mental Status: []Client alert and oriented, casually dressed and groomed. Eye contact good. Motor activity appropriate. Speech within normal limits. Affect congruent, mood euthymic. Thoughts linear, logical, no signs of hallucinations or delusions. Client Response/Progress/Benefit: []Client responded well to session, engaged in the experiential activity and attentive throughout group processing. Client completed the fear of failure worksheet and reported that fear of failure has kept client from ?being honest with herself and others, creating art, and healing from trauma.? Client able to identify thoughts and behaviors that reinforce personal fear of failure which included: ignoring triggers, lack of motivation, self-sabotage, and minimizing. Client attentive during discussion of the different strategies to help overcome fear of failure. Identified wanting to work on overcoming ignoring triggers by talking to trusted supports and tracking safety situations. Appeared to benefit from gaining self-awareness and learning strategies to overcome fear of failure. Client will continue IOP tx to increase mood stability, reduce avoidance, and improve overall functioning. Narrative Note: []
== END 2021-08-05 23:59 ==
LOC: BHIOP 09:00
PROVIDERS: Referring Provider Psychiatry & Neurology Psychiatry; Visit Provider Psychiatry & Neurology Psychiatry
DX: F41.1 Generalized anxiety disorder (principal); F33.1 Major depressive disorder, recurrent, moderate; F43.10 Post-traumatic stress disorder, unspecified; M19.90 Unspecified osteoarthritis, unspecified site; Z79.899 Other long term (current) drug therapy
CPT/HCPCS: S9480; 90832; 90834; 90853

== ENCOUNTER 2021-08-07 09:00 | Outpatient (RCR) | payer OTHER, SELFPAY ==
[2021-08-06 00:33] VITALS: BP 140/77; PULSE 85
--- NOTE | 2021-08-07 09:05 | BH.SGPN.GN ---
Behaviors/Verbalizations/Mental Status: [] Eye contact is good. Motor activity is appropriate. Appearance is casual. Speech is Appropriate. Mood is depressed. Affect is flat. Thoughts are linear and logical. No evidence of psychosis. Reviewed daily check in sheet and no reports of suicidal ideations or intent. Client Response/Progress/Benefit: [] Pt was an active participant in group discussion. Attentive. Provided appropriate feedback. Emotion for today is worried and suspicious. Shared that she is struggling with setting a boundary with her father who wants to come visit. Pt has decided that she does not want him to visit due to her currently mental health and identifies him to be a trigger at times. She has been avoiding this discussion with him. Group provided feedback on general ways to set boundaries if she wanted to do this. Ruminating on this extensively. Unclear exactly why father is a trigger as she did not elaborate much in group. She reports utilizing skills to help minimize distress, negative thoughts, and hypervigilance on campus. Progress noted per pt report. Will continue in IOP to maintain safety, increase healthy coping, and prevent decompensation. Narrative Note: []
--- NOTE | 2021-08-07 10:15 | BH.SGPN.GN ---
Behaviors/Verbalizations/Mental Status: []Client alert and oriented, neatly dressed and groomed. Eye contact good. Motor activity appropriate. Speech within normal limits. Affect constricted, mood anxious. Thoughts linear, logical, no signs of hallucinations or delusions. Client Response/Progress/Benefit: []Pt was well engaged in group AEB taking notes, providing input, and listening attentively throughout. Attentive during psychoeducation and discussed the importance of goal-setting with the group. Group identified potential benefits of having goals to include: to better oneself, increase self-confidence, improve relationships, create better boundaries, and improve mental health. Group also worked together to identify barriers to goal-setting which included; self-doubt, fear of failure, fear of success, and lack of motivation. Pt reported they personally struggle with fear of judgement, self-doubt, and toxic relationships that impact goal setting. Benefited from increased awareness of benefits and barriers to goal-setting. Will continue IOP tx to improve emotional regulation skills, reduce PTSD symptoms, and improve overall functioning. Narrative Note: []
--- NOTE | 2021-08-07 13:45 | BH.MDN_ITS ---
Multi-Disciplinary Note - Note 30-min Individual Time Started:: 11:40 Date: 08/07/21 Purpose of session/treatment goals addressed:: The purpose of this session was to address current stressors, triggers, and goals for boundary setting. Eye Contact:: Good Motor Activity:: Restless - constantly adjusting shirt Appearance:: Neat Speech:: Appropriate Mood:: Anxious Affect:: Constricted Thoughts:: Linear, Logical, No evidence of hallucinations/delusions noted Staff Interventions:: motivational interviewing, strengths perspective, goal setting, other - discussed boundaries and strategies to improve boundaries. Client Response:: Client responded well to session, open to meeting with therapist. Client wanted to talk about setting boundaries with their father today and how they should go about doing this. Discussed barriers to setting this boundary such as fear of father's reaction as it has caused guilt in the past. Client also feels like their mother is not totally supportive, but they believe if client talks to mother, mother will understand. Client explored their goal for setting boundaries such as expressing their needs, keeping themselves safe, asking for financial support, and letting their father know they have PTSD. Client would like to set this boundary and have this conversation through messaging and they want to be very factual not emotional. Also discussed the additional support they will need to follow through with this boundary and self- care that can help reduce guilt and anxiety. Risks/Concerns:: Client denies any suicidal ideations, plan, or intent as of 08/07/21. Denies homicidal ideations. Progress Toward Goals/Plan:: Client reports progress with verbalizing their needs and setting boundaries more consistently. Continues to report symptoms of PTSD including being fearful to loud noises, hypervigilence, sleep issues, and not feeling safe. Client reports ongoing stress, but has been feeling better about school due to deciding to stay an extra semester. Client will continue IOP tx improve emotional regulation skills, reduce PTSD symptoms, and increase ability to set boundaries to promote safety. Time Stopped:: 12:15
--- NOTE | 2021-08-08 09:01 | BH.SGPN.GN ---
Behaviors/Verbalizations/Mental Status: []Eye contact is good. Motor activity is appropriate. Appearance is casual. Speech is Appropriate. Mood is euthymic. Affect is congruent. Thoughts are linear and logical. No evidence of psychosis. Reviewed daily check in sheet and no reports of suicidal ideations or intent. Client Response/Progress/Benefit: []Pt responded well to session AEB pt sharing thoughts and feelings, listening attentively to others and providing feedback to others. Pt identified stressor and positive as making decision they will text message their father stating that they cannot be around him due to PTSD and needing space. Pt stated additional mental health positive as telling their mom that they will be setting boundary with their dad today. Pt reported mom responded better to pt's boundary then expected. Pt stated their mom apologized to pt for pushing pt in the past to reconnect with their dad. Pt reported she also choreographed a dance last night for their fall dance show which pt stated was cathartic because the dance was expressing their PTSD. Pt to continue IOP to increase continue use of healthy coping skills, continue to set boundaries and prevent decompensation. Narrative Note: []
--- NOTE | 2021-08-08 10:10 | BH.SGPN.GN ---
Behaviors/Verbalizations/Mental Status: []Eye contact is good. Motor activity is appropriate. Appearance is casual. Speech is Appropriate. Mood is anxious, euthymic. Affect is congruent. Thoughts are linear and logical. No evidence of psychosis Client Response/Progress/Benefit: []Pt was an attentive participant in group discussion AEB taking notes and contributing throughout.. Attentive during psychoeducation on Conflict Styles ( Avoidant, Competing, Accommodating, and Collaborating). Participated in interactive group discussion on benefits of conflict.? Pt along with peers identified several reasons conflict is often avoided which included; anxiety, fear of other?s reaction, not wanting to face additional conflict, and negative past experiences. Pt reported that they have struggled with internalizing rather addressing conflict in the past which has created several problems later. Shared connecting most with the accommodating conflict style, which has been easiest but resulted in continuing to ?stay stuck?. Benefited from increased awareness on conflict styles. Will continue in IOP to promote mood stability, increase the use of healthy communication with supports and boundary setting, reduce negative self-talk, and improve functioning. Narrative Note: []
--- NOTE | 2021-08-08 11:10 | BH.SGPN.GN ---
Behaviors/Verbalizations/Mental Status: []Client alert and oriented, casually dressed and groomed. Eye contact good. Motor activity appropriate. Speech within normal limits. Affect congruent, mood euthymic. Thoughts linear, logical, no signs of hallucinations or delusions. Client Response/Progress/Benefit: []Client engaged in session AEB taking notes and participating when prompted. Client did well to review conflict styles and the various impacts of each on mental health. Client reports their barriers to managing conflict are fear of change and failure and previous experiences with conflict that were negative. Client wants to work on bettering managing conflict by not stockpiling issues and knowing what their goals are before having difficult conversations. Appeared to benefit from gaining strategies to help client better manage conflict. Will continue IOP tx to increase ability to manage PTSD and anxiety symptoms while also increasing ability to function. Narrative Note: []
--- NOTE | 2021-08-09 09:05 | BH.SGPN.GN ---
Behaviors/Verbalizations/Mental Status: [] Eye contact is good. Motor activity is appropriate. Appearance is casual. Speech is Appropriate. Mood is depressed. Affect is flat. Thoughts are linear and logical. No evidence of psychosis. Reviewed daily check in sheet and no reports of suicidal ideations or intent. Client Response/Progress/Benefit: [] Pt participated in group discussion on ways to combat negative thinking. Attentive. Provided appropriate feedback. Daily symptom tracker notes 11/10 for anxiety. Mental health win included making a dance routine to represent her PTSD which she hopes to perform in the future. She reports yesterday to being overstimulated in her room due to random noises (peers, construction, and lawn work). Being overstimulated led to isolation and avoidance. She is focused on letting her peers and RA know that she has PTSD and the need to be cognizant of that around her room. The noise let to avoidance of tasks as well. She had planned to discuss visitation and setting boundary with her dad however was not in the right head space. Benefited from group support and encouragement. Will continue in IOP to prevent decompensation, increase healthy skills, and maintain gains. Narrative Note: []
--- NOTE | 2021-08-09 10:11 | BH.SGPN.GN ---
Behaviors/Verbalizations/Mental Status: []Client alert and oriented, casually dressed and groomed. Eye contact good. Motor activity appropriate. Speech within normal limits. Affect congruent, mood euthymic. Thoughts linear, logical, no signs of hallucinations or delusions. Client Response/Progress/Benefit: Pt was an active participant in group discussion, taking notes and providing input throughout. Attentive during psychoeducation on communication styles. Along with peers, pt participated in providing insight into the benefits to effective communication on mental health which included; helps us get needs met, resolves problems, improves relationships, maintains boundaries, and prevents additional conflict. Identified ?Communication is important because it helps you keep healthy relationships and improves conflict resolution?. Pt along with peers able to identify ways that communication can be misinterpreted. Pt noted ?Mind reading can create an illusion. ?We think we know what the other person is thinking, so then we think we know what the outcome will be??. Pt reported connecting with ?past negative experiences? as a potential communication barrier, discussing fears the other person will respond poorly. Benefited from increased awareness of different communication barrier, styles, and the importance of communicating effectively to improve mental wellness. Will continue IOP tx to prevent decompensation, learn healthy anxiety and trauma coping skills, healthy boundary setting, and improve overall functioning.[] Narrative Note: []
--- NOTE | 2021-08-09 11:10 | BH.SGPN.GN ---
Behaviors/Verbalizations/Mental Status: []Client alert and oriented, casually dressed and appropriately groomed. Eye contact good. Motor activity appropriate. Speech WNL. Affect constricted, mood anxious. Thoughts linear, logical, no signs of hallucinations or delusions. Client Response/Progress/Benefit: []Client responded well to session AEB client listening attentively to others and providing input during group discussion on the pay offs and costs of the different communication styles. Client stated they are most often a passive communicator because fear of how others will respond. Recognizes this results in them not expressing emotions. Attentive during psychoeducation on interpersonal DBT skill JÚNIOR and client selected a communication skill to practice. Client selected the skill of a asserting and expressing because struggles with asserting their needs to others. Client seemed to benefit from increasing awareness of healthy strategies to improve communication. Will continue IOP tx to maintain gains, increase healthy coping and prevent decompensation. Narrative Note: []
--- NOTE | 2021-08-14 09:04 | BH.SGPN.GN ---
Behaviors/Verbalizations/Mental Status: []Client alert and oriented, casually dressed and groomed. Eye contact good. Motor activity appropriate. Speech within normal limits. Affect congruent, mood dysthymic. Thoughts linear, logical, no signs of hallucinations or delusions. Reviewed client?s symptom tracker, no risk for suicidal ideation, plan, or intent as of 07/10/21. Client Response/Progress/Benefit: []Client responded well to session, attentive and providing supportive feedback. Client reports feeling sleepy this morning. Shared trying to go to bed earlier in order to get more sleep but ended up waking up much earlier as well. Discussed different mindfulness skills they could try prior to sleep to aid in feeling more relaxed at bedtime. Went on to discuss setting a boundary with their father as both a positive and stressor. Noted messaging him with their concerns and needs over [place] as this is their only means for communicating at this time. Client shared that he has not yet responded to the message but that they have taken steps to reduce rumination through use of skills and reaching out to supports. Went on to note an additional stressor and positive as their upcoming dance concert next week. Noted feeling very excited about the show but stressed about finishing everything on time. Client appeared to benefit from reflecting upon areas of progress as well as skills being used to continue to support gains made. Client reports on daily symptom tracker that mood and functioning have generally been better. Will continue IOP tx to promote mood stability, further improve stress management skills, and promote continued communication with supports. Narrative Note: []
--- NOTE | 2021-08-14 10:12 | BH.SGPN.GN ---
Behaviors/Verbalizations/Mental Status: []Client alert and oriented, neatly dressed and groomed. Eye contact good. Motor activity appropriate. Speech within normal limits. Affect congruent, mood euthymic. Thoughts linear, logical, no signs of hallucinations or delusions. Client Response/Progress/Benefit: []Pt was an active participant in group discussion and activity. Attentive during psychoeducation on coping skills. Pt along with peers worked together to identify unhealthy coping skills such as; avoidance, substance use, and trying to take care of issues alone. Group was able to identify why people use unhealthy coping skills such as; easy, comfortable, work in the short-term, habit, or take less energy. Pt noted that learning healthy coping skills took a lot of trial and error in their life. Also, pt shared even though healthier skills take more time and energy, there are more benefits. Benefited from increased understanding of unhealthy coping skills and the need for developing healthy internal coping skills to manage mental health sx. Pt will continue in IOP to further improve functioning and decrease PTSD sx. Narrative Note: []
--- NOTE | 2021-08-14 11:12 | BH.SGPN.GN ---
Behaviors/Verbalizations/Mental Status: []Client alert and oriented, casual dress, hygiene tended to. Eye contact good. Motor activity appropriate. Speech within normal limits. Affect congruent, mood anxious. Thoughts linear, logical, no signs of hallucinations or delusions. Client Response/Progress/Benefit: []Client responded well to session, actively listening and providing examples. Client stated they tend to rely on internal coping skills, although not always healthy, needing to increase their external coping. Group discussed the different categories of coping skills which included distraction, emotional release, grounding, self-love, and thought challenging. Client participated in creating a coping skills ?menu? from the five categories of coping skills. Client's coping skill menu included: art/create, dance, 5 senses, drinking water, and positive affirmations. Appeared to benefit from increasing repertoire of healthy coping skills. Will continue tx to increase healthy coping, continue to challenge distortions and prevent decompensation. Narrative Note: []
--- NOTE | 2021-08-14 13:50 | BH.MDN ---
Multi-Disciplinary Note - Note 30-min Individual Time Started:: 12:15 Date: 08/14/21 Purpose of session/treatment goals addressed:: To review pt's DSM-5 scores at review, discuss progress, and identify additional goals to promote mood stability. Eye Contact:: Good Motor Activity:: Appropriate Appearance:: Neat Speech:: Appropriate Mood:: Euthymic Affect:: Full Thoughts:: Linear, Logical, No evidence of hallucinations/delusions noted Staff Interventions:: mindfulness skills, discharge planning, strengths perspective, reviewed DSM-5 Client Response:: Pt responded well to session, open to meeting with therapist. Pt reports they have been doing well and although they are busy, pt shared its all good stress. Pt is looking forward to an upcoming dance recital, especially because they have choreographed multiple pieces for the performance. Pt stated the boundary they set with their father went well, even though their father has not responded yet. Pt reports advocating for themselves has helped pt feel less anxious and more empowered. Pt also reports feeling more confident in their ability to manage PTSD triggers and they have gained more self-awareness since being in IOP. Pt would like to continue to work on managing PTSD symptoms and feeling less lonely in their PTSD. Discussed what triggers loneliness in their diagnosis, and pt reports it is when they are tired, stressed, or have night terrors. Pt reports dance and being vulnerable with supports has helped pt cope with this. Pt plans to return home to [place] over winter break, so pt wants to go back to their outpatient counselor from [place] when they discharge from [facility]. Risks/Concerns:: Pt denies any suicidal ideations, plan, or intent as of 08/14/21. No homicidal ideations. Progress Toward Goals/Plan:: Pt's DSM-5 scores have decreased by 32% overall since admission and anxiety has decreased by 60%. Pt reports increased confidence in boundary setting, improved mood, and better ability to cope with symptoms. Pt continues to endorse mild symptoms of depression per DSM-5 self-assessment. Pt also reports ongoing symptoms of PTSD such as fear of loud noises, but pt reports they have been coping better. Will continue IOP tx to further improve mood stability, establish aftercare, and reinforce healthy coping skills. Time Stopped:: 12:40
--- NOTE | 2021-08-14 13:51 | BH.MTP_ITS ---
Treatment Plan Review Date of Admission:: 07/17/21 Date of Treatment Plan Review:: 08/14/21 Admitting Diagnoses:: Generalized anxiety disorder; Major depressive disorder, recurrent, moderate F 33.1; PTSD Current Diagnoses:: Generalized anxiety disorder; Major depressive disorder, recurrent, moderate (resolving); PTSD Patient's Response to Treatment:: Pt?s engagement has been consistent throughout their time in [facility]. Pt contributes to discussions, connects with peers, and reports actively applying healthy coping skills. Pt?s attendance is consistent, and they are complicate with medications. Pt?s overall DSM-5 scores have decreased by 32% since admission. Status of Current Problems and Symptoms: Pt's symptoms of anxiety and PTSD are resolving, but pt continues to report fear of loud noises, hypervigilance (but l ess frequent), and feeling frightened several days a week. Pt also reports mild symptoms of depression such as feeling down and having little interest in doing things several days a week. Pt also continues to have school stressors and pt is working on setting firm boundaries with their father which has caused anxiety in recent weeks. Problem #1 Problem Name:: Increase emotional regulation skills and reduce PTSD symptoms Status of Goals:: Objective 1- complete with ongoing work encouraged. Pt can identify trauma triggers and completed a maintenance plan with warning signs, coping skills, and supports needed to manage symptoms. Pt has been using dance, grounding, and talking with supports. Objective 2- complete with ongoing work encouraged. Pt?s DSM-5 scores for anxiety decreased by 60% since admission. Pt can identify the most common cognitive distortions and pt has been actively working on combating these. Team Recommendations:: Treatment team recommends pt continue working on increasing emotional regulation skills and utilizing their creative outlets to continue to manage PTSD. Problem #2 Problem Name:: Reduce depressive symptoms, lack of motivation, and inappropriate guilt Status of Goals:: Objective 1- not complete. Pt?s DSM-5 scores for depression remain the same since intake. Pt?s depressive symptoms are still within the mild range for severity and pt did not decompensate. Pt reports utilizing opposite action, self-care, and spending time with supports to manage depression. Objective 2- complete with ongoing work encouraged. Pt has been working on setting healthy boundaries with family and friends which has helped pt challenge guilt and use more positive self-talk. Pt can continue to work on this goal while reinforcing these boundaries. Team Recommendations:: Treatment team encourages pt to continue working on combatting inappropriate guilt and utilizing healthy coping skills to further decrease depression.
--- NOTE | 2021-08-16 09:00 | BH.SGPN.GN ---
Behaviors/Verbalizations/Mental Status: []Client alert and oriented, casually dressed and groomed. Eye contact good. Motor activity appropriate. Speech within normal limits. Affect constricted, mood anxious. Thoughts linear, logical, no signs of hallucinations or delusions. Reviewed client?s symptom tracker, no risk for suicidal ideation, plan, or intent as of 08/16/21 Client Response/Progress/Benefit: []Client responded well to session, attentive and receptive to feedback. Client reports feeling worried this morning as client recently found out their friend has COVID. Client shared she also missed IOP yesterday because they slept through all their alarms. Client stated they are worried their friend will not be able to perform in their dance recital coming up because of illness, so client is also scrambling to find a replacement. Client reports despite these stressors, they plan to practice self-care today and to focus on one task at a time. Client appeared to benefit from processing stressors and identifying self-care practices they can try today. Progress noted as client continues to practice self-care outside of IOP. Will continue IOP tx to further reduce anxiety, increase stress management skills, and promtoe gains. Narrative Note: []
--- NOTE | 2021-08-16 10:10 | BH.SGPN.GN ---
Behaviors/Verbalizations/Mental Status: [] Eye contact is good. Motor activity is appropriate. Appearance is casual. Speech is Appropriate. Mood is euthymic. Affect is congruent. Thoughts are linear and logical. No evidence of psychosis. Client Response/Progress/Benefit: [] Pt was an active participant in group discussion and activity. Attentive during psychoeducation. Provided appropriate feedback. Group had an interactive discussion on defining pitfalls in the context of mental health. Group agreed with definition of events that impact progress or things that get you off track. Pt along with peers identified common mental health pitfalls which included; past experiences, current/past environments, poor communication, anxiety, any type of conflict, and feeling discomfort. Pt was able to identify the pitfalls and challenges that occurred during the experiential activity and worked with peers to identify strategies to overcome pitfalls. Able to make parallels between activity and ways to identify strategies to overcome pitfalls in real-life situations. Benefited from increased awareness of identifying and developing strategies to overcome pitfalls in mental health. Will continue in IOP level of care to prevent decompensation and maintain gains. Narrative Note: []
--- NOTE | 2021-08-16 10:12 | BH.SGPN.GN ---
Behaviors/Verbalizations/Mental Status: []Client alert and oriented, casually dressed and groomed. Eye contact good. Motor activity appropriate. Speech within normal limits. Affect congruent, mood euthymic. Thoughts linear, logical, no signs of hallucinations or delusions Client Response/Progress/Benefit: []Client receptive of session, engaged throughout AEB client actively listening and contributing to discussion, as well as taking notes. Client completed worksheet identifying personal pitfalls impacting mental health progress. Client identified the following pitfalls: ignoring personal wants, inappropriate guilt, trying to do it alone, and unrealistic expectations of self. Group brainstormed different coping skills to help manage pitfalls. Client selected ?inappropriate guilt? as the pitfall client wants to overcome. Client plans to work on this by thought challenging, grounding, trying to use opposite action, positive self-talk, and recognizing what?s out of my control. Benefited from identifying personal pitfalls and strategies to overcome these pitfalls. Will continue IOP tx to improve communication of needs, maintain stability, and prevent decompensation. Narrative Note: []
--- NOTE | 2021-08-21 09:00 | BH.SGPN.GN ---
Behaviors/Verbalizations/Mental Status: []Client alert and oriented, casually dressed and groomed. Eye contact good. Motor activity appropriate. Speech within normal limits. Affect constricted, mood stressed. Thoughts linear, logical, no signs of hallucinations or delusions. Reviewed client?s symptom tracker, no risk for suicidal ideation, plan, or intent as of 08/21/21 Client Response/Progress/Benefit: []Client responded well to session, entered session a few minutes late, but engaged. Client reports feeling burnout and scared this morning. Client reports stressors including their friend being in quarantine, recent self-harm dreams, and worries about the upcoming dance performance. Client stated they have been using poetry as a coping skill and this has been helpful and client also plans to engage in some physical self-care today. Client also shared that they are stressed and frustrated about the barriers to getting a service dog while in college. Client reports using opposite action to get to IOP today as client did not want to leave their bed. Appeared to benefit from getting out and gaining peer support. Will continue IOP tx to help client manage recent stressors and to promote overall mood stability. Narrative Note: []
--- NOTE | 2021-08-21 10:05 | BH.SGPN.GN ---
Behaviors/Verbalizations/Mental Status: []Eye contact is good. Motor activity is appropriate. Appearance is neat. Speech is Appropriate. Mood is euthymic. Affect is congruent. Thoughts are linear and logical. No evidence of psychosis. Client Response/Progress/Benefit: []Pt was an active participant in group discussion AEB taking notes and providing input throughout. Attentive during psychoeducation reviewing internal and external obstacles and provided examples throughout. Participated in the reflection activity in which clients jessica pictures depicting their current and desired reality and shared with the group. Pt identified current reality as having their PTSD symptoms continue to impact their daily functioning at times. Reported they can see progress with managing symptoms at times but still experiencing many triggers. Pt stated desired reality is for PTSD symptoms to be less frequent and intense with ability to manage symptoms more effectively. Benefited from group by increasing current awareness and expectations for progress. Pt to continue IOP to continue use of skills, challenge perspective and prevent decompensation. Narrative Note: []
--- NOTE | 2021-08-21 11:10 | BH.SGPN.GN ---
Behaviors/Verbalizations/Mental Status: [] Eye contact is good. Motor activity is appropriate. Appearance is casual. Speech is Appropriate. Mood is euthymic. Affect is full. Thoughts are linear and logical. No evidence of psychosis. Client Response/Progress/Benefit: [] Pt was an active participant in group discussion and activity. Attentive during psychoeducation. Provided appropriate feedback and insight. Pt identified obstacles that have prevented them from obtaining desired reality being inappropriate guilt, triggers, and poor self-care. Identified strategies to promote emotional wellness and overcome obstacles which included; developing a safe exit plan when triggered, continuously check emotion levels, and understand triggering environments and strategies before entering. Benefited from identifying obstacles in pt's path to mental wellness and developing strategies to minimize the impact of these obstacles. Will continue in IOP to prevent decompensation and increase healthy coping skills. Narrative Note: []
--- NOTE | 2021-08-21 13:55 | BH.MDN ---
Multi-Disciplinary Note - Note 30-min Individual Time Started:: 12:05 Date: 08/21/21 Purpose of session/treatment goals addressed:: To address current stressors, symptoms, and application of coping skills. To review self-care strategies. Eye Contact:: Good Motor Activity:: Appropriate Appearance:: Casual Speech:: Appropriate Mood:: Anxious Affect:: Constricted Thoughts:: Linear, Logical, No evidence of hallucinations/delusions noted Staff Interventions:: thought challenging, motivational interviewing, mindfulness skills, strengths perspective, other - reviewed self-care strategies. Client Response:: Client responded well to session, open to meeting with therapist. Client stated it has been a stressful weekend due to multiple stressors at school. Client shared their best friend has been quarantining with DARREN for the past several days and she will likely miss the dance performance. Client feels overwhelmed by the changes and adjusts that have had to be made because of this. Client also recognizes that because her dance piece is about client's personal mental health journey, it triggered a nightmare recently. Client shared the nightmare was about self-harming, which client is one year self-harm free. Client reports feeling worried that they will lose that progress, but they recognize that they have control over actions. Client has also not heard from their father regarding the boundaries client attempted to set with him last week. Additionally, client feels frustrated because they have been looking into getting a service dog and the process is more challenging than client anticipated. Discussed options and steps client could take to get a service dog or an emotional support pet. In the meantime, client recognizes the importance of prioritizing self-care and mindfulness. Client reports they have been writing poetry, painting, and focusing on one task at a time. Risks/Concerns:: Client denies any active suicidal ideations, plan, or intent as of 08/21/21. Denies any self-harm. Denies any homicidal ideations. Progress Toward Goals/Plan:: Client continues to demonstrate progress towards tx goals despite an increase in stress this week. Client reports having a nightmare yesterday, but client feels they are coping well. Client continues to report symptoms of anxiety and PTSD which have increased this week due to situational stressors. Client wants to pursue getting a service dog. Client will continue IOP tx to help manage symptoms exacerbated by current stressors. Time Stopped:: 12:25
--- NOTE | 2021-08-22 09:03 | BH.SGPN.GN ---
Behaviors/Verbalizations/Mental Status: []Client alert and oriented, casually dressed and groomed. Eye contact good. Motor activity appropriate. Speech within normal limits. Affect congruent, mood anxious, stressed. Thoughts linear, logical, no signs of hallucinations or delusions. Reviewed client?s symptom tracker, no risk for suicidal ideation, plan, or intent as of 08/22/21. Client Response/Progress/Benefit: []Client receptive to session, attentive and willing to participate throughout. Reports feeling ?overwhelmed this morning. Shared that this is due to the upcoming end of the semester. Discussed trying to reach out to friends and family, as well as take breaks for self-care to cope with current stressors. Went on to share that her best friend from high school had a birthday yesterday which resulted in client reflecting on how much has changed in the past few years. Shared these reflections were bittersweet as it is hard to accept that things are different, but that different can also be good. Identified the positive changes experienced over the past few years and feeling more capable of living true to their identity, which client noted as a major positive. Discussed an upcoming anniversary of being one year self-harm free which will be a major milestone as well. Appeared to benefit from supportive group environment and reflecting on personal progress. Recommended continued IOP tx to maintain gains, continue to promote boundary setting and healthy coping, as well as prevent decompensation. Narrative Note: []
--- NOTE | 2021-08-22 10:10 | BH.SGPN.GN ---
Behaviors/Verbalizations/Mental Status: []Client alert and oriented, casually dressed and groomed. Eye contact fair. Motor activity appropriate. Speech within normal limits. Affect congruent, mood euthymic. Thoughts linear, logical, no signs of hallucinations or delusions. Client Response/Progress/Benefit: []Client responded well to session AEB client contributing to session and listening attentively to others. Client connected with the topic of perspective, discussing how past life experiences can affect perspective and how we interpret situations. They discussed how their symptoms of PTSD affect their perspective and using healthy coping skills to positively impact the client?s perspective. Client participated in the photo activity, identifying that they automatically see the negative in situations rather than the positive. When asked to search out the positive, they discussed feeling more open-minded than before. Client seemed to benefit from increased awareness of perspectives and how they can affect mental health recovery. Progress noted in client?s engagement in group session. Will continue IOP treatment to increase application of healthy coping skills, and improve daily functioning. Narrative Note: []
--- NOTE | 2021-08-22 11:10 | BH.SGPN.GN ---
Behaviors/Verbalizations/Mental Status: []Client alert and oriented, casually dressed and groomed. Eye contact good. Motor activity appropriate. Speech within normal limits. Affect congruent, mood euthymic. Thoughts linear, logical, no signs of hallucinations or delusions. Client Response/Progress/Benefit: []Pt did well to remain attentive throughout session, AEB providing input throughout discussion. Did well to take notes and complete worksheet provided. Engaged as group reviewed the importance of taking a strengths-based approach in order to foster a healthier perspective and better manage mental health symptoms. Pt shared they have learned to utilize their strengths more since being in IOP. Completed strengths exploration worksheet and identified personal strengths to include: creativity, artistic ability, and empathy. Pt reported they will continue to complete their accomplishment log to recognize strengths. Benefited from identifying personal strengths and strategies for enhancing use of identified strengths. Pt to continue IOP tx to reinforce healthy coping skills and establish aftercare plan. Narrative Note: []
--- NOTE | 2021-08-22 12:01 | PCM.BH.PN_ITS ---
Progress Note Progress Note: History of Present Illness/Interim History: [] The patient is a 21-year-old female with a history of anxiety, depression and PTSD who is seen in follow-up at the [facility] behavioral health IOP program. I last saw the patient about 3 weeks ago and at that time blood work was ordered to check her thyroid and vitamin D level. The patient states that she has still been unable to get her blood drawn due to being busy with IOP and a lot of school activities and assignments. She feels that she is learning valuable coping skills in the IOP program and feels that she is much better able to set boundaries with people when she needs to. She says her mood is better now and she would say that she is only mildly depressed some days. Some days of the week now she feels her mood is good and back to normal. She still has a lot of school stress and is still dancing and enjoying this greatly. She has a dance performance this weekend and she is looking forward to it as she will be able to see some friends she has not seen in a while. She denies passive thoughts of , suicidal ideation, plan for suicide, homicidal ideation, hallucinations or delusions. Current Psychiatric Medications: [] Lexapro 20 mg p.o. daily Mental Status Examination: [] The patient is a female who is seen wearing a mask due to the pandemic and appears normal for stated age and is casually dressed and groomed with good hygiene. She has no psychomotor agitation or retardation. Eye contact is good and speech is normal rate and rhythm and fluent with no pressure. Mood is euthymic. Affect is full and normal. Thought process is goal-directed and organized. Thought content: There is no evidence of passive thoughts of , suicidal ideation, plan for suicide, thoughts of self-harm, homicidal ideation, hallucinations or delusions. Judgment is intact. Insight is good. Impulsivity is moderate to low. Diagnoses: [] 1. Generalized anxiety disorder 2. Major depressive disorder, recurrent, moderate (resolving) 3. PTSD 4. Osteoarthritis 5. Primary support and school stress Plan: [] The patient will continue the IOP program at [facility] as the structure, support, education and group therapy is improving the patient's symptoms at this time. She felt safe during the interview and if it anytime she does not feel safe she will let us know or go to the emergency room. The risks, side effects, possible complications and options of the medication treatment were again discussed with the patient and she understands and accepts these. The patient will continue to try to obtain her blood work. She will continue to follow-up with her outpatient providers and no medication changes were made today.
--- NOTE | 2021-08-23 09:09 | BH.SGPN.GN ---
Behaviors/Verbalizations/Mental Status: []Eye contact is good. Motor activity is appropriate. Appearance is casual. Speech is Appropriate. Mood is euthymic. Affect is congruent. Thoughts are linear and logical. No evidence of psychosis. Reviewed daily check in sheet and no reports of suicidal ideations or intent. Client Response/Progress/Benefit: []Pt responded well to session AEB sharing thoughts and feelings and listening attentively to peers. 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 Pt reported using belly breathing throughout presentation to help them manage anxious symptoms in the moment. Pt reported additional mental health positive as having fall dance show starting tonight. Pt stated they are excited to go out with fellow dancers after the show tonight, which they reported going out of their comfort zone by initiating the hangout. Pt identified feeling passionate this morning. Progress noted with pt reporting improved mood and ability to use skills in the moment yesterday. Narrative Note: []
--- NOTE | 2021-08-23 10:12 | BH.SGPN.GN ---
Behaviors/Verbalizations/Mental Status: []Client alert and oriented, casually dressed and groomed. Eye contact good. Motor activity appropriate. Speech within normal limits. Affect congruent, mood euthymic. Thoughts linear, logical, no signs of hallucinations or delusions Client Response/Progress/Benefit: []Pt was an active participant in group discussion and activity. Attentive during psychoeducation on what it means to take action. Pt identified symptoms they want to take gain control over which included handling triggers, boundaries, trauma and dysregulated emotions. Reports belief that they have been working on overcoming these stressors and they feel more equipped to handle triggers. Increased insight into what could be holding pt back from mental wellness and the importance of taking action on symptoms and obstacles rather than avoiding or ignoring. Will continue in IOP to promote gains, further increase functioning, and establish aftercare. Narrative Note: []
--- NOTE | 2021-08-23 11:12 | BH.SGPN.GN ---
Behaviors/Verbalizations/Mental Status: []Client alert and oriented,casually dressed and groomed. Eye contact good. Motor activity appropriate. Speech within normal limits. Affect congruent, mood euthymic. Thoughts linear, logical, no signs of hallucinations or delusions. Client Response/Progress/Benefit: []Client responded well to session, taking notes and participating in worksheet discussion. Client set a goal to gain control over inappropriate guilt. Client plans to work on this by self-reflecting through journaling when they experience guilt and asking themselves if the guilt is appropriate or not and why. Client reports they will do this for the next week. Client reports they will need a notebook, a friend to talk to, a reminder on their phone, and art to de-stress to support client in accomplishing this goal. Appeared to benefit from identifying a small goal to benefit mental health. Progress noted as client reports improved mood and functioning following increased stressors this week. Will continue IOP tx to increase emotional regulation skills, promote gains, and further improve functioning. Narrative Note: []
--- NOTE | 2021-08-29 09:05 | BH.SGPN.GN ---
Behaviors/Verbalizations/Mental Status: []Client alert and oriented, neatly dressed and groomed. Eye contact good. Motor activity appropriate. Speech within normal limits. Affect congruent-laughing, mood euthymic. Thoughts linear, logical, no signs of hallucinations or delusions. Reviewed client?s symptom tracker, no risk for suicidal ideation, plan, or intent as of 08/29/21 Client Response/Progress/Benefit: C[]Client responded well to session, engaged with peers and providing encouragement. Client reports feeling sore this morning due to back issues from their recent dance concert. Client shared the dance concert went well and they were please with their performance. Client stated they called their mother and advocated for themselves about not getting a job over winter break. Client reports overall they have been coping better and feeling more confident in their ability to set boundaries. Plan is to discharge later this week. Client can benefit from on more IOP day to reinforce healthy coping skills and establish aftercare. Narrative Note: []
--- NOTE | 2021-08-29 10:15 | BH.SGPN.GN ---
Behaviors/Verbalizations/Mental Status: []Client alert and oriented, casually dressed and groomed. Eye contact good. Motor activity appropriate. Speech within normal limits. Affect congruent, mood euthymic. Thoughts linear, logical, no signs of hallucinations or delusions. Client Response/Progress/Benefit: []Client receptive to session, providing input at times and listened attentively to peers. Provided input as the group brainstormed the positive and negative aspects of stress on physical and mental health. Group did well to identify the benefits of stress as well as the impact of distress on performance and mental health. Client identified top stressors such as covid, school, physical pain/ailments, PTSD, money, high expectations and future after graduation.. Client identifies physical pain to be most significant stressor currently. Stated when has overwhelming amount of stress they will shut down and not deal with anything. client seemed to benefit from increasing self-awareness of current stressors. Recommended to continue IOP tx to promote use of healthy coping skills, maintain progress and prevent decompensation.
--- NOTE | 2021-08-29 11:15 | BH.SGPN.GN ---
Behaviors/Verbalizations/Mental Status: [] Eye contact is good. Motor activity is appropriate. Appearance is casual. Speech is Appropriate. Mood is euthymic. Affect is full. Thoughts are linear and logical. No evidence of psychosis. Client Response/Progress/Benefit: [] Pt was an active participant in group discussion and activity. Attentive during psychoeducation. Provided appropriate feedback. Engaged in group experiential activity which led to interactive discussion on what it means to have control over stressors vs having no control over stressors. Participated in and provided insight during psychoeducation on the four A?s of stress (adapt, alter, avoid, accept). Pt identified stressor of certain medical condition and made goal to utilize the strategy of Accepting stating I need to accept my limitations and adjust my expectations. Benefited from increased awareness of stress management strategies. Will continue in IOP to maintain safety, increase healthy coping, and prevent decompensation. Narrative Note: []
--- NOTE | 2021-08-31 07:21 | BH.AFTERPLAN ---
Aftercare Plan - Demographics Treatment End Date:: 08/31/21 Psychiatrist:: Antoinette Car Psychiatrist Office #:: [phone] [facility]/IOP Therapist:: Diamante Trevino Therapist Phone #:: [phone] - Plan Details Strategies for Success:: 1. Continue with your accomplishment journal. 2. Continue using positive, calming affirmations to manage anxiety or PTSD triggers. 3. Remember that it is OKAY to set boundaries! In fact, it is very important to set boundaries. 4. Opposite action! For anxiety, depression, etc. 5. Stay connected with healthy supports. 6. Keep up the self-care! 7. Ask yourself is this guilt appropriate or inappropriate? And then decide what steps to take. 8. Keep up using grounding skills! 9. Give yourself credit for all the hard work you have done. - Appointments Appointments/Referrals to Other Services:: 1. Follow up with therapist from [place]. 2. IOP aftercare starting 09/06/21 at 2:00pm - Medications Home Medications: Home Medications ibuprofen 600 mg PO Q6H PRN 06/20/21 escitalopram oxalate [Lexapro] 20 mg PO DAILY #30 tab 08/01/21
--- NOTE | 2021-08-31 14:01 | BH.AFTERPLAN ---
Aftercare Plan - Demographics Treatment End Date:: 08/31/21 Psychiatrist:: Antoinette Car Psychiatrist Office #:: [phone] [facility]/IOP Therapist:: Diamante Trevino Therapist Phone #:: [phone] - Plan Details Progress/Aftercare Plan Details:: Leandra has made significant strides since starting IOP as shown by their reduced symptoms, ability to manage triggers, and overall increased ability to manage emotions and stressors. When Leandra started IOP, they were depressed, stressed, and struggling with their PTSD. Now, Leandra is actively using healthy coping skills, setting boundaries, challenging negative thoughts, and using the awareness they have gained to manage their emotions and advocate for themselves. Leandra contributed to group discussions, offered emotional support to peers, and consistently followed through with her goals. In individual sessions, Leandra was receptive to feedback, consistent with homework, and willing to push themselves. Leandra?s overall DSM-5 scores have decreased by 52% since admission. Depression decreased by 75% and anxiety decreased by 60%. Strategies for Success:: 1. Continue to set boundaries and advocate for yourself! 2. keep up with your accomplishment journal and allowing yourself to reflect on progress. 3. Reach out to healthy supports, you have done well with this! 4. Continue to practice self-care in all the different areas and activate that creative side. 5. Maintenance is mokn, so keep up with thought challenging and therapy. 6. Self-compassion 7. Continue to check-in with yourself and monitor your mood/vulnerability factors to help cope with stressors and triggers. - Appointments Appointments/Referrals to Other Services:: 1. Follow up with your outpatient counselor in [place] - Medications Home Medications: Home Medications ibuprofen 600 mg PO Q6H PRN 06/20/21 escitalopram oxalate [Lexapro] 20 mg PO DAILY #30 tab 08/01/21
--- NOTE | 2021-08-31 15:35 | BH.DS ---
Discharge Summary - Demographics Date of Admission:: 07/17/21 Discharge Date: 08/31/21 Presenting Problems at Admission:: Pt is a 21-year-old non-binary person with a history of depression and PTSD. Pt was referred to [facility] by [facility] ER after a mental health assessment on 06/19/21. At that time pt presented to the ER with suicidal ideations with thoughts of overdosing. Pt reports at the time pt was overwhelmed and that all their stress was building up. Pt endorsed symptoms of hypervigilance and reports nightmares and avoidance behaviors. Denies any current suicidal ideations. However, pt continues to endorse a depressed mood with lack of energy, poor sleep, lack of motivation, inappropriate guilt, isolation, and lack of motivation. Pt has history of self-injurious behaviors, but denies any current self-harm. Pt's symptoms were impacting their overall functioning. Discharge Diagnoses:: Generalized anxiety disorder; Major depressive disorder, recurrent, moderate F 33.1; PTSD Reason for Discharge:: Pt completed treatment goals AEFB reduction of DSM-5 symptoms and self-report of improved mood stability and functioning. Pt no longer meets criteria for [facility] level of care and will transition to traditional outpatient counseling. - Treatment Progress During Treatment & Response: Pt?s engagement was mostly consistent, however, pt did have several no calls no shows during treatment. Pt contributed to discussions, connected with peers, and actively applied healthy coping skills. Pt was consistent with homework and they reported benefits from their medications. Pt?s overall DSM-5 scores have decreased by 52% since admission. Depression decreased by 75% and anxiety decreased by 60%. Issues Still to be Addressed:: Pt can benefit from ongoing counseling to reinforce healthy coping skills, further increase ability to manage PTSD symptoms, and improve self-compassion. Pt can also benefit from contining to set boundaries with family, when needed, and advocating for self. Discharge Recommendations/Instructions:: Pt will be returning to [place] for winter break in two-three weeks. Because of this, pt did not want to schedule with an outpatient therapist in [place]. Pt plans to call their outpatient therapist from [place] and schedule a session over winter. Pt unable to do aftercare at this time. Discharge Handout: Complete Discharge Handout with client on aftercare options and continuity of care.
== END 2021-09-03 09:11 | disposition home or self-care (01) ==
LOC: BHIOP 09:00
PROVIDERS: Referring Provider Psychiatry & Neurology Psychiatry; Visit Provider Psychiatry & Neurology Psychiatry
DX: F33.1 Major depressive disorder, recurrent, moderate (principal); F43.10 Post-traumatic stress disorder, unspecified; F41.1 Generalized anxiety disorder; Z79.899 Other long term (current) drug therapy; M19.90 Unspecified osteoarthritis, unspecified site
CPT/HCPCS: S9480; 90832; 90853

== ENCOUNTER 2022-03-07 01:06 | Day surgery (SDC) | payer OTHER, SELFPAY ==
[2022-03-07] VITALS (11 sets, daily range): BP systolic 88–159; BP diastolic 50–91; PULSE 84–127; RESP 16; TEMP 36.3–37; O2SAT 95–100; BMI 32.3
--- NOTE | 2022-03-07 01:34 | CT_ITS ---
We are attempting to reach an attending provider to discuss findings. An addendum with communication details will be sent when the communication is complete. STUDY: CT ABDOMEN AND PELVIS WITH CONTRAST REASON FOR EXAM: Female, 21 years old. RLQ pain RADIATION DOSAGE (If Supplied By Facility): CTDIvol = ( 15.18 ) mGy, DLP = ( 1095.38 ) mGycm TECHNIQUE: Transaxial images were obtained from the dome of the diaphragm to the symphysis pubis without oral contrast. IV 100mL Isovue-370 was administered. Sagittal and coronal images were reconstructed. Individualized dose optimization techniques were used for this CT. COMPARISON: None. FINDINGS: The visualized lung bases are unremarkable. The visualized portions of the heart are within normal limits. Normal liver. Normal gallbladder and extrahepatic biliary system. Normal spleen. Normal pancreas. Normal bilateral adrenal glands. Normal right kidney. Normal left kidney. Normal visualized stomach. Normal small intestine. There is moderate stool in the colon. There is a thick walled inflamed appearing appendix measuring up to 9.5 mm with surrounding stranding best seen image #57 series 601 coronal views. Normal abdominal aorta. Normal inferior vena cava. Normal retroperitoneum. Normal urinary bladder. Normal visualized uterus. There is trace free fluid in the pelvis. Normal abdominal wall. There is a mild broad disc bulge L4-L5 and L5-S1. CT/Abdomen/Pelvis W IV Cont ONLY IMPRESSION: Findings are consistent with acute appendicitis. Mild degenerative disc disease. Moderate constipation. Electronically Signed: Norma Harrington MD at 3:19 EDT ,
[2022-03-07 01:46] LABS: Absolute Lymphocyte Count 2.98 X10^3/uL (0.83-4.51); Absolute Neutrophil Count 11.9 X10^3/uL (2.0-7.7); Basophil# 0.07 X10^3/uL; Basophil% 0.4 % (0-1); Eosinophil# 0.31 X10^3/uL; Eosinophils% 1.9 % (0-5); Hematocrit 35.2 % (37-47); Lymphocyte # 2.98 X10^3/ul (0.83-4.51); Lymphocyte % 18.2 % (19-41); Mean Corp Hgb Conc 34.1 g/dL (32-36); Mean Corpuscular Hgb 29.2 pg (27.0-32.0); Mean Corpuscular Volume 85.6 fL (81-99); Mean Platelet Vol. 9.3 fl (6.2-12.0); Monocyte# 1.03 X10^3/uL; Monocyte% 6.3 % (0-10); NRBC Flagged by Analyzer 0 % (0-5); Neutrophil # 11.89 X10^3/uL (2.7-7.7); Neutrophil % 72.8 % (47-70); Platelet Count 342 K/mm3 (150-450); RBC Distribution Width CV 12.7 % (11.6-14.6); RBC Distribution Width SD 39.5 fl (35.1-43.9); Red Blood Count 4.11 M/mm3 (4.2-5.4); White Blood Count 16.3 K/mm3 (4.4-11.0)
[2022-03-07] MEDS: 0.9% Normal Saline 1,000 ML 999 ML IV (01:47)
[2022-03-07 02:00] LABS: AST(SGOT) 9 U/L (15-37); Alanine Aminotransfer ALT/SGPT 16 U/L (13-56); Albumin, Serum 3.3 g/dL (3.2-5.0); Alkaline Phosphatase 44 U/L (45-117); Anion Gap 9 (5-15); BUN 8 mg/dL (7-18); BUN/Creat Ratio 12.5 RATIO (10-20); Bilirubin, Direct 0.06 mg/dL (0.00-0.30); Calcium,Total 8.9 mg/dL (8.5-10.1); Chloride 106 mmol/L (98-107); Creatinine, Serum 0.64 mg/dL (0.55-1.02); EST Glomerular Filtration Rate 123 mL/min (>60); Est Glom Filt Rate - Afr Amer 149 mL/min (>60); Estimated Creatinine Clearance 125.12 ml/min; Globulin 3.6 g/dL (2.2-4.2); Glucose 94 mg/dL (74-106); Lipase 111 U/L (73-393); Potassium 3.7 mmol/L (3.5-5.1); Protein, Total 6.9 g/dL (6.4-8.2); Sodium Level 138 mmol/L (136-145)
[2022-03-07 02:47] LABS: Internal QC Validated? YES +Cl - CLEAR BKGD; Pregnancy, Serum, hCG Quali. NEGATIVE Negative
[2022-03-07 03:19] LABS: Color, Urine Yellow (Yellow); Glucose, Dipstick Normal (Normal); Ketone-Dipstick 5 mg/dl (Negative); Leukocyte Esterase-Dipstick Negative /ul (Negative); Mucous, Urine 0 SEEN /hpf (<or=2+); Nitrite-Dipstick Negative (Negative); Occult Blood-Urine 50 /ul (Negative); Protein-Dipstick Negative (Negative); Urine Bilirubin Dipstick Negative (Negative); Urine Clarity Clear (Clear); Urine Urobilinogen Normal (Normal); White Blood Cells 0 SEEN /hpf (0-5)
[2022-03-07 03:31] LABS: Bacteria 1+ /hpf (None Seen); Red Blood Cells-Urine 0-5 SEEN /hpf (0-5); Squamous Epithelial Cells - UA 0-5 SEEN /hpf (5-10)
[2022-03-07] MEDS: Ondansetron 4 MG/2 ML Vial IV (03:34)
[2022-03-07] MEDS: Morphine 4 MG/ML Syringe IV (03:34)
--- NOTE | 2022-03-07 04:51 | EDS_ITS ---
HPI History of Present Illness Chief Complaint: Abd Pain Narrative Narrative: Patient is a 21-year-old female who states that today she felt generalized abdominal discomfort that she graded as a 1 or 2 out of 10. She states she did not think much of this but approximately 2 hours prior to arrival she had increase in severity of the pain. She states that there was no recent trauma prior to the pain increasing. She does state is localized in the lower abdomen. She reports feeling nauseous after the pain began but otherwise denies any bouts of vomiting and does report a few episodes of loose stool. With the sudden increase in her pain she was concerned for an underlying infection and therefore comes in for evaluation [facility] Medical History (Updated 03/07/22 @ 04:[address] Ba Garsia, DO) Generalized anxiety disorder IBS (irritable bowel syndrome) Major depressive disorder, recurrent, moderate Osteoarthritis PTSD (post-traumatic stress disorder) Home Medications ibuprofen 600 mg PO DAILY 06/20/21 [History Last Taken Unknown] escitalopram oxalate [Lexapro] 20 mg PO DAILY #30 tab 08/01/21 [Rx Last Taken Unknown] norgestimate-ethinyl estradiol [[place]-Linyah] 1 tab PO DAILY 03/07/22 [History Last Taken Unknown] Allergy/AdvReac Type Severity Reaction Status Date / Time No Known Allergies Allergy Verified 06/19/21 22:23 Surgical History (Updated 03/07/22 @ 01:12 by Cathy Wolf) History of tonsillectomy Social History Smoking Status: Never smoker [facility] ED Constitutional Constitutional ED: Denies chills or fever(s) ENT ENT ED: Denies sore throat Cardiovascular Cardiovascular: Denies chest pain Respiratory/Chest Respiratory/Chest: Denies cough or dyspnea Gastrointestinal Gastrointestinal: Reports abdominal pain, diarrhea and nausea; Denies vomiting Genitourinary Genitourinary ED: Denies dysuria or hematuria Musculoskeletal Musculoskeletal: Denies back pain or myalgias Integumentary Denies rash Neurologic Neurologic: Denies headache(s) Hematologic/Lymphatic Hematologic/Lymphatic: Denies easy bleeding or easy bruising EXAM Physical Exam Const Vital Signs: 03/07/22 01:08 03/07/22 01:44 03/07/22 04:07 Temperature 98.6 F Temperature Source Oral Pulse Rate 87 86 92 Respiratory Rate 16 16 16 Blood Pressure 88/50 L 111/59 L 100/59 L Blood Pressure Mean 62 76 72 Pulse Ox 97 100 95 Oxygen Delivery Method Room Air Room Air Room Air Positive well nourished and well developed General Appearance ED: well developed HEENT Reports moist mucous membranes Eyes PERRL and EOMs intact bilaterally Neck supple Resp normal respiratory effort and clear to auscultation bilaterally Cardio regular rate and regular rhythm Rate: other Other Details: Radial pulses are +2-4 bilaterally are equal and symmetric GI non-distended GI Narrative: Patient has diffuse pain with palpation in the lower abdomen but this is greatest on the right lower quadrant. There is voluntary guarding at the site Auscultation: normoactive bowel sounds Palpation: soft Extremity normal to inspection Neuro oriented x3 and CN's II-XII intact bilaterally Sensorium / Orientation: alert Motor Exam: strength 5/5 throughout Psych mental status grossly normal Skin no rashes or lesions noted MDM MDM MDM Narrative Medical decision making narrative: Patient presented to the ER afebrile but was mildly hypotensive. With her sudden increase in pain in the right lower quadrant there is concern for a secondary intestinal versus pelvic. Therefore basic labs were obtained and patient was started on IV fluids secondary to the mild hypotension. Blood work showed elevated white blood cell count and slight elevation to the lactic at 2. The CT scan confirmed inflammatory changes consistent with acute appendicitis without perforation. The patient's blood pressure improved with IV fluids and she was started on Zosyn secondary to the infection. General surgery was contacted regarding the acute appendicitis and will take her to surgery this morning for surgical fixation. The plan of care was discussed with the patient and she is agreeable to this Lab Data Attestation: I reviewed the patient's lab results. Labs: Laboratory Results - last 24 hr 03/07/22 03/07/22 03/07/22 01:21 01:21 01:21 WBC 16.3 H RBC 4.11 L Hgb 12.0 Hct 35.2 L MCV 85.6 MCH 29.2 MCHC 34.1 RDW Std Deviation 39.5 RDW Coeff of Jatinder 12.7 Plt Count 342 MPV 9.3 Immature Gran % (Auto) 0.400 Neut % (Auto) 72.8 H Lymph % (Auto) 18.2 L [place] % (Auto) 6.3 Eos % (Auto) 1.9 Baso % (Auto) 0.4 Absolute Neuts (auto) 11.9 H Absolute Lymphs (auto) 2.98 Nucleated RBC % 0 Sodium 138 Potassium 3.7 Chloride 106 Carbon Dioxide 23.0 Anion Gap 9 BUN 8 Creatinine 0.64 Estim Creat Clear Calc 125.12 Est GFR (MDRD) Af Amer 149 Est GFR (MDRD) Non-Af 123 BUN/Creatinine Ratio 12.5 Glucose 94 Lactic Acid Calcium 8.9 Total Bilirubin 0.40 Direct Bilirubin 0.06 AST 9 L ALT 16 Alkaline Phosphatase 44 L Total Protein 6.9 Albumin 3.3 Globulin 3.6 Lipase 111 Serum , Qual NEGATIVE Urine Color Urine Clarity Urine pH Ur Specific [place] Urine Protein Urine Glucose (UA) Urine Ketones Urine Occult Blood Urine Nitrite Urine Bilirubin Urine Urobilinogen Ur Leukocyte Esterase Urine RBC Urine WBC Ur Squamous Epith Cells Urine Bacteria Urine Mucus 03/07/22 03/07/22 01:50 03:10 WBC RBC Hgb Hct MCV MCH MCHC RDW Std Deviation RDW Coeff of Jatinder Plt Count MPV Immature Gran % (Auto) Neut % (Auto) Lymph % (Auto) [place] % (Auto) Eos % (Auto) Baso % (Auto) Absolute Neuts (auto) Absolute Lymphs (auto) Nucleated RBC % Sodium Potassium Chloride Carbon Dioxide Anion Gap BUN Creatinine Estim Creat Clear Calc Est GFR (MDRD) Af Amer Est GFR (MDRD) Non-Af BUN/Creatinine Ratio Glucose Lactic Acid 2.0 Calcium Total Bilirubin Direct Bilirubin AST ALT Alkaline Phosphatase Total Protein Albumin Globulin Lipase Serum , Qual Urine Color Yellow Urine Clarity Clear Urine pH 7.0 Ur Specific [place] 1.010 Urine Protein Negative Urine Glucose (UA) Normal Urine Ketones 5 H Urine Occult Blood 50 H Urine Nitrite Negative Urine Bilirubin Negative Urine Urobilinogen Normal Ur Leukocyte Esterase Negative Urine RBC 0-5 SEEN Urine WBC 0 SEEN Ur Squamous Epith Cells 0-5 SEEN Urine Bacteria 1+ Urine Mucus 0 SEEN Radiography Diagnostic Testing: Clinical Impression(s) from Imaging Studies Abdomen/Pelvis CT 03/07/22 01:34 IMPRESSION: Findings are consistent with acute appendicitis. Mild degenerative disc disease. Moderate constipation. Electronically Signed: Norma Harrington MD at 3:19 EDT , ADDENDUM: 03/07/22 0330 IMPRESSION: Findings are consistent with acute appendicitis. Mild degenerative disc disease. Moderate constipation. N.B. : The above Results were Read Back by Norma Harrington MD to Dr. Ady MD, and understanding confirmed on 03/07/2022 03:23:33 (ET). Electronically Signed: Norma Harrington MD at 3:19 EDT Reading Location ID and State: [facility] / [place] Tel , Service support , Discharge Plan Dx/Rx/DC Orders Clinical Impression: Acute appendicitis Disposition Disposition: Acute Care Hospital [facility]
[2022-03-07 05:50] LABS: Reflex Lactate? Y
--- NOTE | 2022-03-07 06:44 | HP.PCM_ITS ---
HPI - General HPI Narrative JAIR GIBBONS, is a 21 F who presented initially to the ER due to abdominal pain. Patient states pain started about 7 PM got worse at 11 PM patient has a history of IBS so she thought the pain was due to this. However early in the morning the pain got even worse and patient states she was dizzy when she got up. Patient had a friend bring her to the ER. In the ER patient CT abdomen pelvis was consistent with acute appendicitis. Patient had a white blood count of 16.3. Patient did get IV Zosyn in the ER. Patient never had any previous abdominal surgeries. [facility] Medical History (Updated 03/07/22 @ 04:[address] Ba Garsia, DO) Generalized anxiety disorder IBS (irritable bowel syndrome) Major depressive disorder, recurrent, moderate Osteoarthritis PTSD (post-traumatic stress disorder) Home Medications ibuprofen 600 mg PO DAILY 06/20/21 [History Last Taken Unknown] escitalopram oxalate [Lexapro] 20 mg PO DAILY #30 tab 08/01/21 [Rx Last Taken Unknown] norgestimate-ethinyl estradiol [[place]-Linyah] 1 tab PO DAILY 03/07/22 [History Last Taken Unknown] Allergy/AdvReac Type Severity Reaction Status Date / Time No Known Allergies Allergy Verified 06/19/21 22:23 Surgical History (Updated 03/07/22 @ 01:12 by Cathy Wolf) History of tonsillectomy Social History Smoking Status: Never smoker Vital Signs Vital Signs Vital Signs: 03/07/22 01:08 03/07/22 01:44 03/07/22 04:07 Temperature 98.6 F Temperature Source Oral Pulse Rate 87 86 92 Respiratory Rate 16 16 16 Blood Pressure 88/50 L 111/59 L 100/59 L Blood Pressure Mean 62 76 72 Blood Pressure Source Blood Pressure Position Blood Pressure Location Pulse Ox 97 100 95 Oxygen Delivery Method Room Air Room Air Room Air 03/07/22 06:14 03/07/22 06:27 Temperature 97.3 F L 97.3 F L Temperature Source Oral Oral Pulse Rate 84 84 Respiratory Rate 16 16 Blood Pressure 159/91 H 159/91 H Blood Pressure Mean 113 113 Blood Pressure Source Monitor Blood Pressure Position Semi-Fowlers Blood Pressure Location Left Arm Pulse Ox 95 95 Oxygen Delivery Method Room Air Room Air Weight Weight: 194 lb 7.163 oz Body Mass Index (BMI) 32.3 Physical Exam Const alert, oriented x3 and no apparent distress HEENT normocephalic and head/scalp atraumatic Resp normal respiratory effort Cardio regular rate GI soft to palpation; Negative for non-distended Palpation: tender RLQ; Negative for guarding Extremity no clubbing, cyanosis or edema Neuro CN's II-XII intact bilaterally Psych mental status grossly normal Results Lab / Micro Data Result Diagrams: 03/07/22 01:21 03/07/22 01:21 Labs: Laboratory Results - last 24 hr 03/07/22 01:21: WBC 16.3 H, RBC 4.11 L, Hgb 12.0, Hct 35.2 L, MCV 85.6, MCH 29.2, MCHC 34.1, RDW Std Deviation 39.5, RDW Coeff of Jatinder 12.7, Plt Count 342, MPV 9.3, Immature Gran % (Auto) 0.400, Neut % (Auto) 72.8 H, Lymph % (Auto) 18.2 L, [place] % (Auto) 6.3, Eos % (Auto) 1.9, Baso % (Auto) 0.4, Absolute Neuts (auto) 11.9 H, Absolute Lymphs (auto) 2.98, Nucleated RBC % 0 03/07/22 01:21: Sodium 138, Potassium 3.7, Chloride 106, Carbon Dioxide 23.0, Anion Gap 9, BUN 8, Creatinine 0.64, Estim Creat Clear Calc 125.12, Est GFR (MDRD) Af Amer 149, Est GFR (MDRD) Non-Af 123, BUN/Creatinine Ratio 12.5, Glucose 94, Calcium 8.9, Total Bilirubin 0.40, Direct Bilirubin 0.06, AST 9 L, ALT 16, Alkaline Phosphatase 44 L, Total Protein 6.9, Albumin 3.3, Globulin 3.6, Lipase 111 03/07/22 01:21: Serum , Qual NEGATIVE 03/07/22 01:50: Lactic Acid 2.0 03/07/22 03:10: Urine Color Yellow, Urine Clarity Clear, Urine pH 7.0, Ur Specific [place] 1.010, Urine Protein Negative, Urine Glucose (UA) Normal, Urine Ketones 5 H, Urine Occult Blood 50 H, Urine Nitrite Negative, Urine Bilirubin Negative, Urine Urobilinogen Normal, Ur Leukocyte Esterase Negative, Urine RBC 0-5 SEEN, Urine WBC 0 SEEN, Ur Squamous Epith Cells 0-5 SEEN, Urine Bacteria 1+, Urine Mucus 0 SEEN Radiology Impression Abdomen/Pelvis CT 03/07/22 01:34 IMPRESSION: Findings are consistent with acute appendicitis. Mild degenerative disc disease. Moderate constipation. Electronically Signed: Norma Harrington MD at 3:19 EDT Reading Location ID and State: [facility] / [place] Tel , Service support , ADDENDUM: 03/07/22 0330 IMPRESSION: Findings are consistent with acute appendicitis. Mild degenerative disc disease. Moderate constipation. N.B. : The above Results were Read Back by Norma Harrington MD to Dr. Ady MD, and understanding confirmed on 03/07/2022 03:23:33 (ET). Electronically Signed: Norma Harrington MD at 3:19 EDT Reading Location ID and State: [facility] / [place] Tel , Service support , Assessment & Plan Assessment/Plan (1) Acute appendicitis: PLAN: 1. Discussed procedure laparoscopic appendectomy, possible open along with the risk but not limited to bleeding, infection/abscess, injury to another organ (small bowel, colon, etc.), adhesion, hernia at incision sites, and anesthesia. Daphne Au M.D. Pager: [phone] [facility] [address] [place] [address], [address] [place] [address] Office: [phone] Procedure Criteria Type of Procedure Procedure Type: Elective Elective Risks - COVID COVID Risk Discussion: The surgeon/proceduralist and patient have discussed in detail the risk of exposure to and/or potential harm posed by the COVID-19 virus with having a surgery/procedure at this time versus the risk of delaying the philip ludmila/procedure. It is not possible to know either the risk of delaying the surgery or procedure or chance of getting an infection with perfect accuracy, but a joint decision was made between the patient and the surgeon/proceduralist to proceed at this time with the scheduled surgery/procedure as indicated on the consent form.
--- NOTE | 2022-03-07 07:00 | APP_PTH ---
PATIENT: JAIR GIBBONS LOC: [facility] U#:[id number] AGE/SX: 21/F ROOM: RE03/07/[address]: Dr. Daphne Au MD : 2000 BED: DIS: 03/07/2022 SPEC #: [id number] RECD: 03/07/22 10:09 STATUS: KEENAN REParam #: [id number] JANIYA: 03/07/22 07:[address]: Daphne Au DEPT: SURGICAL PATHOLOGY RECD BY: Myra Brody ENTERED: 03/07/22 12:59 SP TYPE: APPENDIX OT DR: No Primary Care Phys Tissues: Appendix, NOS Procedures: Surgery Specimen Level III HEADER OPERATION: Laparoscopic appendectomy PRE-OP DIAGNOSIS: Acute appendicitis TISSUE SUBMITTED: Appendix MICROSCOPIC DIAGNOSIS Appendix, appendectomy: Acute necrotizing appendicitis. Acute serositis. AM:bladimir 03/08/2022 MICROSCOPIC DESCRIPTION Slides are reviewed. GROSS DESCRIPTION Received in fixative is one container labeled with the patient's name and designated appendix. The specimen consists of a vermiform appendix measuring 7 cm in length and 1 cm in average diameter. No gross perforations are evident. Serial sections reveal a patent lumen. No mass lesion is identified. Agricultural Produ[employer] sections are submitted in one cassette. / AM:bladimir 03/07/2022 TC:2 CPT: 28572
[2022-03-07] MEDS: Bupivacaine Mpf 0.5% 30 ML VIAL (07:41)
--- NOTE | 2022-03-07 07:50 | PCM.OPRPT ---
Report of Operation Date of Procedure: 03/07/22 Pre-Operative Diagnosis: Acute appendicitis Post-Operative Diagnosis: Same Surgery/Procedure Performed:: Laparoscopic appendectomy Surgeon: Daphne Au Type of Anesthesia: General/Supplemental Anesthesiologist: Jony Spicer Special Medications: Zosyn 3.375 g IV x1 in ER for acute appendicitis Specimen's removed: Appendix Estimated Blood Loss (mL): < 10 cc Description of Procedure: Indications: 21-year-old female presented to the ER with new right lower quadrant pain last night. On workup she was found to have acute appendicitis on CT and a leukocytosis of 16.3. Patient was started on antibiotics in the ER for acute appendicitis-Zosyn 3.375 g IV. Description of the procedure: The patient was placed on operating table in supine position. General anesthesia was induced. A timeout was completed verifying correct patient, procedure, position and special equipment prior to beginning procedure. Abdomen was prepped and draped in usual sterile fashion. Incision was made in the natural skin line below the umbilicus with a 15 blade scalpel. The fascia was elevated and incised. Entry into the peritoneum was confirmed visually and no bowel was noted in the vicinity of the incision. The Cade trocar was placed under direct vision. Abdomen insufflated with a pressure of 12-15 mmHg. Patient tolerated insertion well. The scope was inserted and the abdomen inspected. No injuries from initial trocar placement were noted. Minimal amount of fluid was seen in the right lower quadrant. An direct visualization 2 -5 mm trocars were placed one above the symphysis pubis and below the hairline and one in the left lower quadrant lateral to the rectus muscle. Care is taken to avoid injury to the bladder and inferior epigastric vessels. The table was placed in Trendelenburg position with the right side elevated. The appendix was grasped with atraumatic grasper and elevated. It was noted to be inflamed. A window was developed in the mesoappendix at the point between the base of the appendix and the cecum. An endoscopic 45 mm linear cutting stapler blue load was then used to divide and staple the base of the appendix. Enseal was used to divide the mesoappendix. The appendix was withdrawn into the Cade trocar after being placed endoscopically retrieval bag. Appendix was sent to pathology. The appendiceal stump was then irrigated and hemostasis was assured. Fluid was suctioned no other pathology was identified. Secondary trochars were removed under direct visualization. No bleeding was noted trocar sites. The laparoscope withdrawn and the umbilical trocar removed. The abdomen was allowed to collapse. Local anesthesia of 30 mL of 0.5% Marcaine was used at the incision sites. The umbilical trocar site was closed with the ubbtde-cf-aipel 0 Vicryl suture. The skin was closed using sutures of 4-0 Monocryl and Steri-Strips. The patient was extubated. The patient tolerated the procedure well and was taken to the postanesthesia care unit in satisfactory condition. Complications none
--- NOTE | 2022-03-07 07:54 | EX.PCM.DISCH ---
Discharge Instructions Diet Discharge Diet: Light diet - advance as tolerated Activity Discharge Activity: May Not Drive (while taking narcotic pain medications.) May shower in (days): 1 Lifting Restrictions: no lifting >20 lbs x 2 wks, no strenuous exercise for 4 wks Dressing / Incision Call your doctor if your incision/area has: Continuous Slow Oozing, Sudden Increased Bleeding, Increased Pain/ Swelling, Increased Redness, Foul Smelling Discharge and Swelling at the incision site Call your doctor if you observe: Fever of 101 or Higher Remove Dressing in: 2 days Cleanse incision/area with: Soap & Water Additional Dressing/Incision Instructions:: Steri-Strips will fall off in 7 to 10 days, if they do not fall off okay to remove after 10 days. Follow Up Care Please Follow Up With: Daphne Au MD When: Call the office for a follow-up appointment 2 weeks; after 5 PM and on the weekends call [phone] with any concerns. Test Results: Test results from this visit will be discussed in further detail at your follow-up appointment, if applicable. Discharge Plan Admission Attending Provider: Daphne Au Primary Care Provider: Debby Carrillo Primary Instructions Additional Instructions / Restrictions: Okay to take ibuprofen 400-600 mg PO q6hr PRN along with the Percocet/oxycodone?acetaminophen. Avoid Tylenol since there is already Tylenol in the Percocet. Take all pain meds with food. Percocet can cause constipation recommend taking daily stool softener (i.e. Colace/docusate) while taking the pain meds. Recommend starting some MiraLAX in 1 to 2 days if no bowel movement. If still no bowel movement the following day recommend taking magnesium citrate half the bottle and waiting 4-6 hours if still no results take the other half the bottle. Discharge Orders/Prescriptions Prescriptions: New oxycodone-acetaminophen 5-325 mg tablet 1 tab PO Q6H PRN (Reason: pain) 3 Days Qty: 14 RF: 0 No Action ibuprofen 600 mg Tablet 600 mg PO DAILY RF: 0 escitalopram oxalate [Lexapro] 20 mg tablet 20 mg PO DAILY Qty: 30 RF: 1 norgestimate-ethinyl estradiol [[place]-Linyah] 0.25-35 mg-mcg tablet 1 tab PO DAILY RF: 0 Referrals / Follow Up: Care PhysicianNo Primary [Primary Care Provider] - Disposition Disposition (needs filled in before D/C Order can be placed): Home, Self Care
[2022-03-07] MEDS: Lactated Ringers 1,000 ML 15 ML IV (08:32)
[2022-03-07] MEDS: oxyCODONE 5 MG Tablet PO (09:44)
[2022-03-07] MEDS: Acetaminophen 325 MG Tablet PO (09:44)
== END 2022-03-07 10:48 | disposition home or self-care (01) ==
LOC: ED 01:39 → SDC 04:39 → ACINP 04:41 → AC 08:42
PROVIDERS: Emergency Provider Emergency Medicine; Visit Provider Surgery
PROC: 0DTJ4ZZ Resection of Appendix, Percutaneous Endoscopic Approach (ICD-10-PCS; CPT 44970; principal; 2022-03-07 06:40)
DX: K35.30 Acute appendicitis with localized peritonitis, without perforation or gangrene (principal); F33.1 Major depressive disorder, recurrent, moderate; I95.9 Hypotension, unspecified; F41.1 Generalized anxiety disorder; Z79.899 Other long term (current) drug therapy
CPT/HCPCS: 44970; 00840; 74177; 80048; 80076; 81001; 83605; 83690; 84703; 85025; 88304; 99284; J7030; J7120; Q9967; A4216; C1760; J2405

== ENCOUNTER 2022-10-05 14:31 | Emergency (ER) | payer OTHER, SELFPAY ==
[2022-10-05 14:32] VITALS: BP 149/91; PULSE 103; RESP 14; TEMP 36.7; O2SAT 97; BMI 35.0
--- NOTE | 2022-10-05 14:47 | EDS_ITS ---
HPI History of Present Illness Chief Complaint: Med Refill Narrative Narrative: 22-year-old female past medical history of depression and anxiety, takes escitalopram oxylate 20 mg daily presents for medication refill. She states that she is at the [facility], and graduating, and going home to [place]. She was previously and intensive outpatient psychiatry program but stopped going in August. She presents because she only has 2 tablets of her antidepressant left and she needs another refill before she goes home to [place]. She denies any suicidal ideation or hallucination. [facility] Medical History Generalized anxiety disorder IBS (irritable bowel syndrome) Major depressive disorder, recurrent, moderate Osteoarthritis PTSD (post-traumatic stress disorder) Home Medications ibuprofen 600 mg tablet 600 mg PO DAILY 06/20/21 [History Last Taken Unknown] escitalopram oxalate 20 mg tablet (Lexapro) 20 mg PO DAILY #30 tabs 08/01/21 [Rx Last Taken Unknown] norgestimate 0.25 mg-ethinyl estradiol 35 mcg tablet ([place]-Linyah) 1 tab PO DAILY 03/07/22 [History Last Taken Unknown] oxycodone-acetaminophen 5 mg-325 mg tablet 1 tab PO Q6H PRN pain 3 days #14 tabs 03/07/22 [Rx Last Taken Unknown] escitalopram oxalate 20 mg tablet 20 mg PO DAILY #30 tabs 10/05/22 [Rx Last Taken Unknown] Allergy/AdvReac Type Severity Reaction Status Date / Time No Known Allergies Allergy Verified 10/05/22 14:32 Surgical History History of tonsillectomy Social History Smoking Status: Never smoker ROS ROS ED ROS Narrative Constitutional: No fever, no chills. HEENT: No sore throat. No neck pain. No loss of vision. No rhinorrhea. Cardiovascular: No chest pain. No palpitations. No pedal edema. Respiratory: No cough, no shortness of breath. Abdominal: No abdominal pain. No nausea. No vomiting. Genitourinary: No dysuria. No hematuria. Musculoskeletal: No myalgias. No arthralgias. Neurologic: No headaches. No dizziness. No lightheadedness. Skin: No rash. No change in color. Psychiatric: No depression. No anxiety. No problems currently. Needs medication refill for stability. EXAM Physical Exam Narrative Exam Narrative: Afebrile. Vital signs noted. HEENT: Normocephalic. Atraumatic. PERRL, EOMI. Neck soft and supple. No point tenderness or step off. Cardiovascular: Regular rate and rhythm. No murmurs, rubs, or gallops appreciated. Respiratory: No tachypnea. Lungs clear to auscultation bilaterally. Gastrointestinal: Abdomen soft, nontender, with normoactive bowel sounds. No rebound or guarding. Neurological: Awake. Alert. Nonfocal, nonlateralizing. Skin: No rash. Normal color. No pallor. Musculoskeletal: No pedal edema. Full range of motion extremities. Psychiatric: No hallucinations, no suicidal ideation. Const Vital Signs: 10/05/22 14:32 10/05/22 14:43 Temperature 98.1 F Temperature Source Temporal Pulse Rate 103 H Respiratory Rate 14 Respiratory Effort Normal Non-Labored Respiratory Pattern Normal Blood Pressure 149/91 H Blood Pressure Mean 110 Pulse Ox 97 Oxygen Delivery Method Room Air MDM MDM MDM Narrative Medical decision making narrative: I discussed refills with her. I will write her prescription for 30 tablets to take daily with no refills. She was told to get further refills in the future from her psychiatrist. CATHY can be discharged safely home with follow-up. Return instructions were reviewed. Disposition is discharged home in stable condition. Discharge Plan Triage Chief Complaint: Med Refill ED Provider: Nigel Jean Baptiste Dx/Rx/DC Orders Clinical Impression: Medication refill, Depression Instructions: Med Refill Prescriptions: New escitalopram oxalate 20 mg tablet 20 mg PO DAILY Qty: 30 0RF No Action ibuprofen 600 mg Tablet 600 mg PO DAILY escitalopram oxalate [Lexapro] 20 mg tablet 20 mg PO DAILY Qty: 30 1RF norgestimate-ethinyl estradiol [[place]-Linyah] 0.25-35 mg-mcg tablet 1 tab PO DAILY Label Comments: TAKE 1 TABLET BY MOUTH EVERY DAY oxycodone-acetaminophen 5-325 mg tablet 1 tab PO Q6H PRN (Reason: pain) 3 Days Qty: 14 0RF Primary Care Provider: Care Physician,No Primary Referrals: Care Physician,No Primary [Primary Care Provider] - Disposition Disposition: Home, Self Care
== END 2022-10-05 15:02 | disposition home or self-care (01) ==
LOC: ED 14:55
PROVIDERS: Emergency Provider Emergency Medicine; Visit Provider Emergency Medicine
DX: F32.A Depression, unspecified (principal); Z76.0 Encounter for issue of repeat prescription; F41.9 Anxiety disorder, unspecified; Z79.899 Other long term (current) drug therapy
CPT/HCPCS: 99282